=== PATIENT | male | born 1955 | race American Indian/Alaskan Native ===

== ENCOUNTER 2019-06-30 13:55 | Inpatient (IN) | payer MEDICARE ==
--- NOTE | 2019-06-30 14:22 | Event Note ---
ED Screening Note ED Screening Note: act team provider to his home usually mobile; able to go get his own food etc. difficulty ambulating a/o x 3 caregiver could not get him to come to door landlord did wellness check pt found weak no sob no cp pmh htn cardiac stent baseline speech imped. but worse today denies fall nok sister Georgette This initial assessment/diagnostic orders/clinical plan/treatment(s) is/are subject to change based on patients health status, clinical progression and re- assessment by fellow clinical providers in the ED. Further treatment and workup at subsequent clinical providers discretion. Patient/guardian urged not to elope from the ED as their condition may be serious if not clinically assessed and managed. Initial orders include: to main for full eval
[2019-06-30 15:01] LABS: Basophils % (Auto) 0.4 % (0.0-1.8); Eosinophils # (Auto) 0.1 K/mm3 (0.0-0.4); Eosinophils % (Auto) 1.9 % (0.0-4.3); Hematocrit 44.4 % (35.5-45.6); Hemoglobin 14.9 gm/dl (11.8-15.2); Lymphocytes # (Auto) 1.4 K/mm3 (1.2-5.4); Lymphocytes % (Auto) 21.6 % (13.4-35.0); Mean Corpuscular HGB Conc 34 % (32-34); Mean Corpuscular Volume 95 fl (84-94); Monocytes # (Auto) 0.5 K/mm3 (0.0-0.8); Monocytes % (Auto) 7.6 % (0.0-7.3); Platelet Count 220 K/mm3 (140-440); Red Blood Count 4.69 M/mm3 (3.65-5.03); Red Cell Distribution Width 12.9 % (13.2-15.2)
[2019-06-30 15:12] LABS: INR 0.96 (0.87-1.13)
[2019-06-30 15:26] LABS: Alanine Aminotransferase 10 units/L (7-56); Albumin 4.3 g/dL (3.9-5); BUN/Creatinine Ratio 15; Blood Urea Nitrogen 15 mg/dL (9-20); Calcium 9.9 mg/dL (8.4-10.2); Hemolysis Index 17
[2019-06-30] MEDS ORDERED: NACL 0.9% 1000 ML 1,000 ML IV ONE (15:31)
--- NOTE | 2019-06-30 15:31 | XRay Report ---
CHEST 1 VIEW INDICATION: altered mental status; sob. COMPARISON: None FINDINGS: Support devices: None. Heart: Within normal limits. Lungs/Pleura: No acute air space or interstitial disease. Additional findings: None. IMPRESSION: 1. No acute findings. Signer Name: Nestor Cooley MD Signed: 06/30/2019 3:27 PM Workstation Name: [id number]
--- NOTE | 2019-06-30 16:16 | Emergency Department Report ---
ED General Adult HPI - General Chief complaint: Neuro Symptoms/Deficit Stated complaint: (R) LEG PAIN Time Seen by Provider: 06/30/19 14:18 Source: patient Mode of arrival: Wheelchair Limitations: No Limitations - History of Present Illness Initial comments: 64-year-old -Thai male presents to ED with right leg discomfort, weakness, dizziness, unsteady gait for the past 2 days. Since Sunday, really also noticed that patient has had some intermittent slurred speech. Family states he usually has some slurred speech after taking his psychiatric medications. No fever, chills or night sweats. History of schizophrenia on invega shots. nih 0 at 1430. -: Gradual Location: face, mouth Radiation: non-radiation Severity scale (0 -10): 3 Consistency: now resolved - Related Data Home Medications Medication Instructions Recorded Confirmed Last Taken Paliperidone Palmitate [Invega 234 mg IM QMONTH 06/30/19 06/30/19 06/30/19 Sustenna] amLODIPine [Norvasc] 10 mg PO DAILY 06/30/19 06/30/19 06/30/19 diphenhydrAMINE [Benadryl CAP] 50 mg PO QHS PRN 06/30/19 06/30/19 06/30/19 Previous Rx's Medication Instructions Recorded Last Taken Type Aspirin EC [Halfprin EC] 81 mg PO QDAY #30 tablet. 07/10/19 Unknown Rx AtorvaSTATin [Lipitor] 40 mg PO QHS #30 tablet 07/10/19 Unknown Rx Allergies Allergy/AdvReac Type Severity Reaction Status Date / Time No Known Allergies Allergy Unverified 06/30/19 14:07 ED Review of Systems ROS: Stated complaint: (R) LEG PAIN Other details as noted in HPI Comment: All other systems reviewed and negative Genitourinary: denies: urgency, dysuria Skin: denies: rash, lesions Neurological: weakness ED Past Medical Hx - Past Medical History Previous Medical History?: Yes Hx Hypertension: Yes - Surgical History Hx Coronary Stent: Yes - Social History Smoking Status: Current Every Day Smoker Substance Use Type: None - Medications Home Medications: Home Medications Medication Instructions Recorded Confirmed Last Taken Type Paliperidone Palmitate [Invega 234 mg IM QMONTH 06/30/19 06/30/19 06/30/19 History Sustenna] amLODIPine [Norvasc] 10 mg PO DAILY 06/30/19 06/30/19 06/30/19 History diphenhydrAMINE [Benadryl CAP] 50 mg PO QHS PRN 06/30/19 06/30/19 06/30/19 Hist ory Aspirin EC [Halfprin EC] 81 mg PO QDAY #30 tablet. 07/10/19 Unknown Rx AtorvaSTATin [Lipitor] 40 mg PO QHS #30 tablet 07/10/19 Unknown Rx ED Physical Exam - General Limitations: No Limitations (nih 0 at 1430.) General appearance: alert, in no apparent distress - Head Head exam: Present: atraumatic, normocephalic - Eye Eye exam: Present: normal appearance, PERRL, EOMI Pupils: Present: normal accommodation - ENT ENT exam: Present: normal exam, normal orophraynx - Neck Neck exam: Present: normal inspection - Respiratory Respiratory exam: Present: normal lung sounds bilaterally - Cardiovascular Cardiovascular Exam: Present: regular rate, normal rhythm - GI/Abdominal GI/Abdominal exam: Present: soft, normal bowel sounds - Neurological Exam Neurological exam: Present: alert, oriented X3, CN II-XII intact, other (right upper ext weakness) ED Course Vital Signs 06/30/19 06/30/19 06/30/19 14:26 15:30 15:45 Temperature 98.1 F Pulse Rate 104 H 83 87 Respiratory 18 14 14 Rate Blood Pressure 151/97 141/90 141/90 O2 Sat by Pulse 95 96 95 Oximetry 06/30/19 06/30/19 06/30/19 16:00 18:31 18:51 Temperature Pulse Rate 80 103 H Respiratory 19 18 Rate Blood Pressure 134/87 141/83 141/83 O2 Sat by Pulse 96 98 94 Oximetry 06/30/19 06/30/19 06/30/19 19:00 19:11 19:21 Temperature Pulse Rate 85 94 H 97 H Respiratory 11 L 19 15 Rate Blood Pressure 121/75 121/75 121/75 O2 Sat by Pulse 94 96 95 Oximetry 06/30/19 06/30/19 06/30/19 19:30 19:41 19:51 Temperature Pulse Rate 87 94 H Respiratory 18 20 Rate Blood Pressure 106/70 106/70 106/70 O2 Sat by Pulse 93 98 Oximetry 06/30/19 06/30/19 06/30/19 20:03 20:11 20:21 Temperature Pulse Rate 91 H 85 Respiratory 22 16 Rate Blood Pressure 106/70 129/82 129/82 O2 Sat by Pulse 95 96 97 Oximetry ED Medical Decision Making - Lab Data Result diagrams: 07/08/19 05:37 07/08/19 05:37 Critical care attestation.: If time is entered above; I have spent that time in minutes in the direct care of this critically ill patient, excluding procedure time. ED Disposition Clinical Impression: TIA (transient ischemic attack) Disposition: OP ADMIT IP TO THIS HOSP Is pt being admited?: Yes Does the pt Need Aspirin: Yes Condition: Stable
--- NOTE | 2019-06-30 17:24 | Cat Scan Report ---
CT head/brain wo con INDICATION: slurred speech 48 hrs. TECHNIQUE: Routine CT head without contrast. All CT scans at this location are performed using CT dos e reduction for ALARA by means of automated exposure control. COMPARISON: None. FINDINGS: BRAIN / INTRACRANIAL CONTENTS: There is chronic encephalomalacia in the right anterior frontal lobe a nd right anterior temporal lobe, likely secondary to remote prior trauma. There is no definite acute cortical infarct. There is moderate deep cerebral white matter hypoattenuation in keeping with modera te chronic microvascular radiographic change with expected dilation of the lateral ventricles. There is no acute hemorrhage, hydrocephalus, or adverse mass effect. ORBITS: No significant abnormality of visualized orbits. SINUSES / MASTOIDS: No significant abnormality of visualized sinuses and mastoid air cells. ADDITIONAL FINDINGS: None. IMPRESSION: 1. No definite acute findings. 2. Chronic encephalomalacia in the right anterior temporal lobe and right inferior frontal lobe, like ly secondary to remote prior trauma. 3. Moderate deep cerebral white matter hypoattenuation with pattern consistent with chronic microvasc ular radiographic change. Signer Name: Spike Grey MD Signed: 06/30/2019 5:20 PM Workstation Name: [id number]
[2019-06-30] MEDS ORDERED: DULCOLAX PR PRN (19:37)
[2019-06-30] MEDS ORDERED: ZOFRAN IV PRN (19:37)
[2019-06-30] MEDS ORDERED: MILK OF MAGNESIA PO PRN ×2 (19:37→20:29)
[2019-06-30 20:36] LABS: Bilirubin,Urine NEG (Negative); Blood,Urine NEG (Negative); Color,Urine Yellow (Yellow); Protein,Urine <15 mg/dL mg/dL (Negative); Urobilinogen,Urine < 2.0 mg/dL (<2.0)
--- NOTE | 2019-06-30 20:37 | History and Physical Report ---
History of Present Illness Date of examination: 06/30/19 Date of admission: 06/30/2019 Chief complaint: Right leg discomfort, weakness, dizziness, unsteady gait History of present illness: 64-year-old -Malaysian male with history of schizophrenia, CAD s/p stent, HTN who presents to the [facility] ED with complaints of right leg discomfort, weakness, dizziness, unsteady gait for the past 2 days. Patient states that he started experiencing right leg discomfort/pain, weakness on Thursday 06/28. Later on that day he started experiencing dizziness and unsteady gait. Patient also states that he's been having intermittent slurred speech. His family states that he usually has some slurred speech after receiving monthly invega injection. Denies: Headache, visual disturbances, fever, cough, hemoptysis, chest pain, dyspnea, or recent sick contact Past History Past Medical History: CAD, hypertension (s/p stent), other (schizophrenia on monthly invega shots) Past Surgical History: Other (s/p stent) Social history: smoking (current everday smoker) Family history: no significant family history Medications and Allergies Allergies Allergy/AdvReac Type Severity Reaction Status Date / Time No Known Allergies Allergy Unverified 06/30/19 14:07 Home Medications Medication Instructions Recorded Confirmed Last Taken Type Paliperidone Palmitate [Invega 234 mg IM QMONTH 06/30/19 06/30/19 06/30/19 History Sustenna] amLODIPine [Norvasc] 10 mg PO DAILY 06/30/19 06/30/19 06/30/19 History diphenhydrAMINE [Benadryl CAP] 50 mg PO QHS PRN 06/30/19 06/30/19 06/30/19 History Active Meds: Active Medications Acetaminophen (Tylenol) 650 mg PO Q4H PRN PRN Reason: Pain, Mild (1-3) Amlodipine Besylate (Norvasc) 10 mg PO DAILY JAS Aspirin (Aspirin) 325 mg PO QDAY JAS Atorvastatin Calcium (Lipitor) 40 mg PO QHS JAS Bisacodyl (Dulcolax) 10 mg DE QDAY PRN PRN Reason: Constipation Docusate Sodium (Colace) 100 mg PO BID JAS Sodium Chloride (Nacl 0.9% 1000 Ml) 1,000 mls @ 125 mls/hr IV ONCE ONE Stop: 06/30/19 23:30 Last Admin: 06/30/19 15:56 Dose: 125 mls/hr Documented by: Magnesium Hydroxide (Milk Of Magnesia) 30 ml PO Q4H PRN PRN Reason: Constipation Magnesium Hydroxide (Milk Of Magnesia) 30 ml PO Q4H PRN PRN Reason: Constipation Nicotine (Habitrol) 14 mg TD QDAY JAS Ondansetron HCl (Zofran) 4 mg IV Q6H PRN PRN Reason: Nausea And Vomiting Sodium Chloride (Sodium Chloride Flush Syringe 10 Ml) 10 ml IV PRN PRN PRN Reason: LINE FLUSH Review of Systems All systems: negative Constitutional: no fatigue, no weakness Integumentary: other (right leg pain) Neurological: weakness (rt leg ), change in speech (slurred speech), gait dysfunction Exam - Physical Exam Narrative exam: Physical exam General appearance: Present: No acute distress, alert and oriented 3, older adult male - EENT Eyes: Present: PERRL, EOM intact ENT: hearing intact, normal dentition - Neck Neck: Present: supple, normal ROM - Respiratory Respiratory effort: Non-labored Respiratory: CTA bilaterally - Cardiovascular Heart rate: 87 (bpm) Rhythm: regular Heart Sounds: Present: S1 & S2. Absent: rub, click - Extremities Extremities: no ischemia, pulses intact, - Peripheral Assessment Peripheral Pulses: within normal limits - Abdominal General gastrointestinal: soft, non-tender, normal bowel sounds - Integumentary Integumentary: Present: warm, dry - Musculoskeletal Musculoskeletal: Able to move all extremities, right upper extremity weakness noted -Neurological Neurological: CN II-XII grossly intact - Psychiatric Psychiatric: cooperative - Constitutional Vitals: Temp Pulse Resp BP Pulse Ox 98.1 F 85 16 129/82 97 06/30/19 14:26 06/30/19 20:21 06/30/19 20:21 06/30/19 20:21 06/30/19 20:21 Results - Labs CBC & Chem 7: 06/30/19 14:45 06/30/19 14:45 Labs: Laboratory Last Values WBC 6.6 K/mm3 (4.5-11.0) 06/30/19 14:45 RBC 4.69 M/mm3 (3.65-5.03) 06/30/19 14:45 Hgb 14.9 gm/dl (11.8-15.2) 06/30/19 14:45 Hct 44.4 % (35.5-45.6) 06/30/19 14:45 MCV 95 fl (84-94) H 06/30/19 14:45 MCH 32 pg (28-32) 06/30/19 14:45 MCHC 34 % (32-34) 06/30/19 14:45 RDW 12.9 % (13.2-15.2) L 06/30/19 14:45 Plt Count 220 K/mm3 (140-440) 06/30/19 14:45 Lymph % (Auto) 21.6 % (13.4-35.0) 06/30/19 14:45 [place] % (Auto) 7.6 % (0.0-7.3) H 06/30/19 14:45 Eos % (Auto) 1.9 % (0.0-4.3) 06/30/19 14:45 Baso % (Auto) 0.4 % (0.0-1.8) 06/30/19 14:45 Lymph # 1.4 K/mm3 (1.2-5.4) 06/30/19 14:45 [place] # 0.5 K/mm3 (0.0-0.8) 06/30/19 14:45 Eos # 0.1 K/mm3 (0.0-0.4) 06/30/19 14:45 Baso # 0.0 K/mm3 (0.0-0.1) 06/30/19 14:45 Seg Neutrophils % 68.5 % (40.0-70.0) 06/30/19 14:45 Seg Neutrophils # 4.6 K/mm3 (1.8-7.7) 06/30/19 14:45 PT 12.5 Sec. (12.2-14.9) 06/30/19 14:45 INR 0.96 (0.87-1.13) 06/30/19 14:45 Sodium 138 mmol/L (137-145) 06/30/19 14:45 Potassium 4.3 mmol/L (3.6-5.0) 06/30/19 14:45 Chloride 97.5 mmol/L (98-107) L 06/30/19 14:45 Carbon Dioxide 25 mmol/L (22-30) 06/30/19 14:45 20 mmol/L 06/30/19 14:45 BUN 15 mg/dL (9-20) 06/30/19 14:45 1.0 mg/dL (0.8-1.5) 06/30/19 14:45 Estimated GFR > 60 ml/min 06/30/19 14:45 15 % 06/30/19 14:45 Glucose 90 mg/dL (75-100) 06/30/19 14:45 POC Glucose 81 (70-105) 06/30/19 14:41 Calcium 9.9 mg/dL (8.4-10.2) 06/30/19 14:45 Magnesium 2.10 mg/dL (1.7-2.3) 06/30/19 14:45 0.90 mg/dL (0.1-1.2) 06/30/19 14:45 AST 17 units/L (5-40) 06/30/19 14:45 ALT 10 units/L (7-56) 06/30/19 14:45 76 units/L (35-129) 06/30/19 14:45 177 units/L (55-170) H 06/30/19 14:45 < 0.010 ng/mL (0.00-0.029) 06/30/19 14:45 7.8 g/dL (6.3-8.2) 06/30/19 14:45 4.3 g/dL (3.9-5) 06/30/19 14:45 1.2 % 06/30/19 14:45 - Imaging and Cardiology Chest x-ray: report reviewed (Lungs/Pleura: No acute air space or interstitial disease. ), image reviewed Imaging and Cardiology: CT Head: FINDINGS: BRAIN / INTRACRANIAL CONTENTS: There is chronic encephalomalacia in the right anterior frontal lobe and right anterior temporal lobe, likely secondary to remote prior trauma. There is no definite acute cortical infarct. There is moderate deep cerebral white matter hypoattenuation in keeping with moderate chronic microvascular radiographic change with expected dilation of the lateral ventricles. There is no acute hemorrhage, hydrocephalus, or adverse mass effect. ORBITS: No significant abnormality of visualized orbits. SINUSES / MASTOIDS: No significant abnormality of visualized sinuses and mastoid air cells. ADDITIONAL FINDINGS: None. IMPRESSION: 1. No definite acute findings. 2. Chronic encephalomalacia in the right anterior temporal lobe and right inferior frontal lobe, likely secondary to remote prior trauma. 3. Moderate deep cerebral white matter hypoattenuation with pattern consistent with chronic microvascular radiographic change. Assessment and Plan Assessment and plan: 64-year-old -Malaysian male with history of schizophrenia, CAD s/p stent, HTN who presents to the [facility] ED with complaints of right leg discomfort, weakness, dizziness, unsteady gait for the past 2 days. Examination patient has slight right upper extremity weakness. TIA R/O Acute CVA -CT Head revealed: Chronic encephalomalacia in the right anterior temporal lobe and right inferior frontal lobe, likely secondary to remote prior trauma. Moderate deep cerebral white matter hypoattenuation with pattern consistent with chronic microvascular radiographic change. -Initiate stroke protocol -Neurochecks per stroke protocol -MRI/ MRA brain, bilateral Carotid Dopplers and Echo pending -No need for permissive htn given that event occured 2 days ago -Start ASA, and Statin -Lipid panel pending -Neurology consulted -PT/OT consult -?? slurred speech per family pt has breif period of slurred speech after receiving invega Hypertension -Continue to monitor BP -Resume home antihypertensive medication to optimize BP History of schizophrenia -receives monthly invega shots -Supportive care DVT PPX -Lovenox -SCD's Advance Directives: No VTE prophylaxis?: Chemical Plan of care discussed with patient/family: Yes
[2019-06-30] MEDS: COLACE PO SCH (21:59)
[2019-07-01 06:22] LABS: Chol/HDL Ratio 4.8 %
[2019-07-01] MEDS: NORVASC PO SCH (10:45)
[2019-07-01] MEDS: ASPIRIN PO SCH (10:45)
[2019-07-01] MEDS: HABITROL TD SCH (10:45)
[2019-07-01] MEDS: COLACE PO SCH ×2 (10:45→22:01)
[2019-07-01] MEDS: LOVENOX SUB-Q SCH (10:46)
--- NOTE | 2019-07-01 15:26 | Progress Note ---
Assessment and Plan Assessment and plan: Patient is a 64-year-old -Citizen Of [place] male with history of schizophrenia, CAD s/p stent, HTN who presents to the [facility] ED with complaints of right leg discomfort, weakness, dizziness, unsteady gait for the past 2 days. * CT head without contrast: IMPRESSION: 1. No definite acute findings. 2. Chronic encephalomalacia in the right anterior temporal lobe and right inferior frontal lobe, likely secondary to remote prior trauma. 3. Moderate deep cerebral white matter hypoattenuation with pattern consistent with chronic microvascular radiographic change. * TTE conclusions: Global LVSF is at the lower limit of normal, estimated EF 50- 55%, mild concentric LVH, mild MVP, mild MR, trace TR, no PFO TIA R/O Acute CVA -CT Head revealed: Chronic encephalomalacia in the right anterior temporal lobe and right inferior frontal lobe, likely secondary to remote prior trauma. Modera te deep cerebral white matter hypoattenuation with pattern consistent with chronic microvascular radiographic change. -Initiate stroke protocol -Neurochecks per stroke protocol -MRI/ MRA brain, bilateral Carotid Dopplers and -No need for permissive htn given that event occurred 2 days ago -Start ASA, and Statin -Lipid panel pending -Neurology consulted -PT/OT consult -?? slurred speech per family pt has breif period of slurred speech after receiving invega Hypertension -Continue to monitor BP -Resume home antihypertensive medication to optimize BP History of schizophrenia -receives monthly invega shots -Supportive care DVT PPX -Lovenox -SCD's History Interval history: Patient was seen and examined. Follow-up on current diagnosis of TIA. No overnight events reported to me. Patient denies any chest pain, shortness breath, nausea/vomiting or severe headaches. Imaging, nursing note, chart, labs and old chart reviewed. Discussed with patient. Hospitalist Physical - Physical exam Narrative exam: Gen: WDWN, NAD, Awake, Alert, Orientated HEENT: NCAT, EOMI, PERRL, OP Clear Neck: supple, no adenopathy, no thyromegaly, no JVD CVS/Heart: RRR, normal S1S2, pulses present bilaterally Chest/Lungs: CTA B, Symmetrical chest expansion, good air entry bilaterally GI/Abdomen: soft, NTND, good bowel sounds, no guarding or rebound /Bladder: no suprapubic tenderness, no CVA or paraspinal tenderness Extermity/Skin: no c/c/e, no obvious rash MSK: FROM x 4 Neuro: CN 2-12 grossly intact, no new focal deficits Psych: calm - Constitutional Vitals: Temp Pulse Resp BP Pulse Ox 97.8 F 93 H 18 139/78 97 07/01/19 11:16 07/01/19 11:16 07/01/19 11:16 07/01/19 11:16 07/01/19 11:16 Results - Labs CBC & Chem 7: 06/30/19 14:45 06/30/19 14:45 Labs: Laboratory Last Values WBC 6.6 K/mm3 (4.5-11.0) 06/30/19 14:45 RBC 4.69 M/mm3 (3.65-5.03) 06/30/19 14:45 Hgb 14.9 gm/dl (11.8-15.2) 06/30/19 14:45 Hct 44.4 % (35.5-45.6) 06/30/19 14:45 MCV 95 fl (84-94) H 06/30/19 14:45 MCH 32 pg (28-32) 06/30/19 14:45 MCHC 34 % (32-34) 06/30/19 14:45 RDW 12.9 % (13.2-15.2) L 06/30/19 14:45 Plt Count 220 K/mm3 (140-440) 06/30/19 14:45 Lymph % (Auto) 21.6 % (13.4-35.0) 06/30/19 14:45 [place] % (Auto) 7.6 % (0.0-7.3) H 06/30/19 14:45 Eos % (Auto) 1.9 % (0.0-4.3) 06/30/19 14:45 Baso % (Auto) 0.4 % (0.0-1.8) 06/30/19 14:45 Lymph # 1.4 K/mm3 (1.2-5.4) 06/30/19 14:45 [place] # 0.5 K/mm3 (0.0-0.8) 06/30/19 14:45 Eos # 0.1 K/mm3 (0.0-0.4) 06/30/19 14:45 Baso # 0.0 K/mm3 (0.0-0.1) 06/30/19 14:45 Seg Neutrophils % 68.5 % (40.0-70.0) 06/30/19 14:45 Seg Neutrophils # 4.6 K/mm3 (1.8-7.7) 06/30/19 14:45 PT 12.5 Sec. (12.2-14.9) 06/30/19 14:45 INR 0.96 (0.87-1.13) 06/30/19 14:45 Sodium 138 mmol/L (137-145) 06/30/19 14:45 Potassium 4.3 mmol/L (3.6-5.0) 06/30/19 14:45 Chloride 97.5 mmol/L (98-107) L 06/30/19 14:45 Carbon Dioxide 25 mmol/L (22-30) 06/30/19 14:45 20 mmol/L 06/30/19 14:45 BUN 15 mg/dL (9-20) 06/30/19 14:45 1.0 mg/dL (0.8-1.5) 06/30/19 14:45 Estimated GFR > 60 ml/min 06/30/19 14:45 15 % 06/30/19 14:45 Glucose 90 mg/dL (75-100) 06/30/19 14:45 POC Glucose 81 (70-105) 06/30/19 14:41 Calcium 9.9 mg/dL (8.4-10.2) 06/30/19 14:45 Magnesium 2.10 mg/dL (1.7-2.3) 06/30/19 14:45 0.90 mg/dL (0.1-1.2) 06/30/19 14:45 AST 17 units/L (5-40) 06/30/19 14:45 ALT 10 units/L (7-56) 06/30/19 14:45 76 units/L (35-129) 06/30/19 14:45 177 units/L (55-170) H 06/30/19 14:45 < 0.010 ng/mL (0.00-0.029) 06/30/19 22:41 7.8 g/dL (6.3-8.2) 06/30/19 14:45 4.3 g/dL (3.9-5) 06/30/19 14:45 1.2 % 06/30/19 14:45 Triglycerides 105 mg/dL (2-149) 07/01/19 04:54 Cholesterol 221 mg/dL (50-199) H 07/01/19 04:54 173 mg/dL (50-130) H 07/01/19 04:54 46 mg/dL (40-59) 07/01/19 04:54 4.80 % 07/01/19 04:54 Yellow (Yellow) 06/30/19 20:07 Clear (Clear) 06/30/19 20:07 5.0 (5.0-7.0) 06/30/19 20:07 Ur Specific [place] 1.018 (1.003-1.030) 06/30/19 20:07 <15 mg/dl mg/dL (Negative) 06/30/19 20:07 Neg mg/dL (Negative) 06/30/19 20:07 Tr mg/dL (Negative) 06/30/19 20:07 Neg (Negative) 06/30/19 20:07 Neg (Negative) 06/30/19 20:07 Neg (Negative) 06/30/19 20:07 < 2.0 mg/dL (<2.0) 06/30/19 20:07 Ur Leukocyte Esterase Neg (Negative) 06/30/19 20:07 1.0 /HPF (0.0-6.0) 06/30/19 20:07 1.0 /HPF (0.0-6.0) 06/30/19 20:07 Active Medications - Current Medications Current Medications: Generic Name Dose Route Start Last Admin Trade Name Freq PRN Reason Stop Dose Admin Acetaminophen 650 mg 06/30/19 19:37 Tylenol PO Q4H PRN Pain, Mild (1-3) Amlodipine Besylate 10 mg 07/01/19 10:00 07/01/19 10:45 Norvasc PO 10 mg DAILY JAS Administration Aspirin 325 mg 07/01/19 10:00 07/01/19 10:45 Aspirin PO 325 mg QDAY JAS Administration Atorvastatin Calcium 40 mg 06/30/19 22:00 06/30/19 21:59 Lipitor PO 40 mg QHS JAS Administration Bisacodyl 10 mg 06/30/19 19:37 Dulcolax [place] QDAY PRN Constipation Docusate Sodium 100 mg 06/30/19 22:00 07/01/19 10:45 Colace PO 100 mg BID JAS Administration Enoxaparin Sodium 40 mg 07/01/19 10:00 07/01/19 10:46 Lovenox SUB-Q 40 mg DAILY JAS Administration Magnesium Hydroxide 30 ml 06/30/19 20:29 Milk Of Magnesia PO Q4H PRN Constipation Nicotine 14 mg 07/01/19 10:00 07/01/19 10:45 Habitrol TD 14 mg QDAY [facility] Administration Ondansetron HCl 4 mg 06/30/19 19:37 Zofran IV Q6H PRN Nausea And Vomiting Sodium Chloride 10 ml 06/30/19 19:37 Sodium Chloride Flush Syringe 10 Ml IV PRN PRN LINE FLUSH
--- NOTE | 2019-07-01 16:52 | Consultation ---
History of Present Illness Consult date: 07/01/19 Reason for Consult: Possible stroke Chief complaint: Rt. leg weakness, dizziness, unsteady gait History of present illness: Patient is a 64 y/o man w/ a h/o HTN, CAD, schizophrenia. Patient had onset of symptoms of Rt. leg weakness, dizziness, unsteady gait and slurred speech 2 days ago. Patient presented to ER yesterday. He states that weakness initially started in Rt. LE, then he later developed imbalanced gait. he has also had intermittent slurred speech. Patient does not have any recollection of having a stroke in the past. He states that he has had one seizure in his life, which occurred in 1995, and has not had any seizures since then. Past History Past Medical History: CAD, hypertension (s/p stent), other (schizophrenia on monthly invega shots) Past Surgical History: Other (s/p stent) Social history: smoking (current everday smoker) Family history: no significant family history Medications and Allergies Allergies Allergy/AdvReac Type Severity Reaction Status Date / Time No Known Allergies Allergy Unverified 06/30/19 14:07 Home Medications Medication Instructions Recorded Confirmed Last Taken Type Paliperidone Palmitate [Invega 234 mg IM QMONTH 06/30/19 06/30/19 06/30/19 History Sustenna] amLODIPine [Norvasc] 10 mg PO DAILY 06/30/19 06/30/19 06/30/19 History diphenhydrAMINE [Benadryl CAP] 50 mg PO QHS PRN 06/30/19 06/30/19 06/30/19 History Active Meds: Active Medications Acetaminophen (Tylenol) 650 mg PO Q4H PRN PRN Reason: Pain, Mild (1-3) Amlodipine Besylate (Norvasc) 10 mg PO DAILY [facility] Last Admin: 07/01/19 10:45 Dose: 10 mg Documented by: Aspirin (Aspirin) 325 mg PO QDAY [facility] Last Admin: 07/01/19 10:45 Dose: 325 mg Documented by: Atorvastatin Calcium (Lipitor) 40 mg PO QHS [facility] Last Admin: 06/30/19 21:59 Dose: 40 mg Documented by: Bisacodyl (Dulcolax) 10 mg CO QDAY PRN PRN Reason: Constipation Docusate Sodium (Colace) 100 mg PO BID [facility] Last Admin: 07/01/19 10:45 Dose: 100 mg Documented by: Enoxaparin Sodium (Lovenox) 40 mg SUB-Q DAILY [facility] Last Admin: 07/01/19 10:46 Dose: 40 mg Documented by: Magnesium Hydroxide (Milk Of Magnesia) 30 ml PO Q4H PRN PRN Reason: Constipation Nicotine (Habitrol) 14 mg TD QDAY [facility] Last Admin: 07/01/19 10:45 Dose: 14 mg Documented by: Ondansetron HCl (Zofran) 4 mg IV Q6H PRN PRN Reason: Nausea And Vomiting Sodium Chloride (Sodium Chloride Flush Syringe 10 Ml) 10 ml IV PRN PRN PRN Reason: LINE FLUSH Review of Systems All systems: negative Neurological: weakness, lack of coordination, change in speech, balance difficulties Physical Examination - Vital Signs Vital Signs: Vital Signs Temp Pulse Resp BP Pulse Ox 98.1 F 104 H 18 151/97 95 06/30/19 14:26 06/30/19 14:26 06/30/19 14:26 06/30/19 14:26 06/30/19 14:26 - Constitutional General appearance: comfortable - EENT EENT: Present: ATNC, PERRL, mucous membranes moist, hearing intact, vision intact - Respiratory Respiratory: Present: lungs clear, normal breath sounds - Cardiovascular Cardiovascular: Present: regular rate, normal S1, normal S2 Extremities: Present: no peripheral edema bilatateraly, no clubbing, cyanosis - Gastrointestinal Gastrointestinal: Present: normoactive bowel sounds, soft, non-tender - Integumentary Integumentary: Present: normal - Neurologic Cranial nerve examination: PERRL, EOMI, VFF, V1/V2/V3 grossly intact, face sy mmetric, tongue midline Speech examination: other (dysarthria noted) Sensorimotor examination: pronator drift Motor examination - right side: 3/5: biceps, triceps, wrist flexion, wrist extension, surgical instrument maker, 4/5: hip flexors, knee extensors, dorsiflexion, toe extension (EHL), plantarflexion Motor examination - left side: 5/5: biceps, triceps, wrist flexion, wrist extension, surgical instrument maker, hip flexors, knee extensors, dorsiflexion, toe extension (EHL), plantarflexion Detailed sensory examination: light touch (decreased on Rt.) Reflexes: 2+: ankle, bicep, knee, tricep - Psychiatric Psychiatric: Present: mood/affect appropriate - Level of Consciousness 1a. Level of Consciousness: alert/keenly responsive - LOC Questions 1b. LOC Questions: answers both correctly - LOC Command 1c. LOC Commands: performs tasks correctly - Best Gaze 2. Best Gaze: normal - Visual 3. Visual: no visual loss - Facial Palsy 4. Facial Palsy: normal symmetrical movement - Motor Arm 5a. Motor Arm Left: no drift 5b. Motor Arm Right: drift - Motor Leg 6a. Motor Leg Left: no drift 6b. Motor Leg Right: drift - Limb Ataxia 7. Limb Ataxia: absent - Sensory 8. Sensory: mild/moderate sensory loss - Best Language 9. Best Language: no aphasia - Dysarthria 10. Dysarthria: mild/moderate dysarthria - Extinction and Inattention 11. Extinction/Inattention: no abnormality - Scoring Total Score: 4 Stroke Severity: Minor Stroke Results - Laboratory Findings CBC and BMP: 06/30/19 14:45 06/30/19 14:45 Abnormal Lab Findings: Abnormal Labs 06/30/19 06/30/19 06/30/19 14:45 14:45 14:45 MCV 95 H RDW 12.9 L [place] % (Auto) 7.6 H Chloride 97.5 L Total Creatine Kinase 177 H Cholesterol LDL Cholesterol Direct 07/01/19 04:54 MCV RDW [place] % (Auto) Chloride Total Creatine Kinase Cholesterol 221 H LDL Cholesterol Direct 173 H Assessment and Plan Patient is a 64 y/o man w/ a h/o HTN, CAD, schizophrenia, who p/w Rt. leg weakness, dizziness, unsteady, slurred speech, 3 days ago. According to the patient's clinical findings, he has had an acute ischemic stroke, as is seen on MRI. Plan: 1. Stroke: - MRI reveals left ponto-medullary stroke. Also notable for encephalomalacia in Rt. frontal region, which may be old stroke. Patient denies any h/o head trauma. - Check CTA head/neck - Echo: EF 50-55%, LA normal size, bubble study negative. -Cont. ASA - Cont. statin, with LDL goal <70. Current LDL 173. - Telemetry monitoring while in house. - PT/OT/ST. - DVT Ppx: recommend lovenox 2. HTN: - Recommend target normal BP as it has been >48 hours since symptom onset. Will continue to follow patient. Mik Young MD Neurology
--- NOTE | 2019-07-01 17:37 | Magnetic Resonance Report ---
MR brain wo con INDICATION / CLINICAL INFORMATION: 64 years Male; stroke. TECHNIQUE: Multiplanar, multisequence MR images of the brain were obtained. Motion artifact COMPARISON: None available. FINDINGS: BRAIN / INTRACRANIAL CONTENTS: Small focus of acute/subacute ischemia seen in the melo leftward of mi dline at the level of the superior cerebellar peduncle. Mild to moderate cerebral and cerebellar atrophy. Encephalomalacia seen in the right frontal region. Old, small corpus striatal infarct seen anteriorly on the left. There are moderate to extensive areas of increased signal intensity on FLAIR imaging in the white mat ter of the cerebral hemispheres, as well as the gangliocapsular regions. These are nonspecific findin gs and may be related to microangiopathy (hypertension, diabetes, atherosclerosis), given the patient 's age. Otherwise, no acute ischemia, acute hemorrhage, or hydrocephalus. CRANIOCERVICAL JUNCTION: No significant abnormality. VASCULAR FLOW-VOIDS: No significant abnormality. ORBITS: No significant abnormality of visualized orbits. SINUSES / MASTOIDS: Mild to moderate mucosal thickening seen in the ethmoids. ADDITIONAL FINDINGS: None. IMPRESSION: 1. Small focus of ischemia seen in the melo leftward of midline, as described above. Signer Name: Donaldo Billings MD, III Signed: 07/01/2019 5:33 PM Workstation Name: [id number]
--- NOTE | 2019-07-02 11:24 | Magnetic Resonance Report ---
MRA head without contrast INDICATION: Recent stroke. TECHNIQUE: 3-D [id number] MRA head performed. COMPARISON: None available. FINDINGS: Exam is mildly limited from motion artifact. No discrete large vessel occlusion or flow-limiting sten osis is identified. There is probable mild stenosis of the bilateral supraclinoid ICAs. No intracrani al aneurysms are identified. There are no significant anatomical variations. IMPRESSION: 1. Mildly limited exam secondary to motion artifact. No appreciable flow limiting stenosis or large v essel occlusion. 2. Probable mild stenosis in the bilateral supraclinoid internal carotid arteries. Signer Name: Spike Grey MD Signed: 07/02/2019 11:20 AM Workstation Name: [id number]
[2019-07-02] MEDS: ASPIRIN PO SCH (13:32)
[2019-07-02] MEDS: LOVENOX SUB-Q SCH (13:32)
[2019-07-02] MEDS: COLACE PO SCH ×2 (13:32→21:52)
[2019-07-02] MEDS: HABITROL TD SCH (13:32)
[2019-07-02] MEDS: NORVASC PO SCH (13:38)
--- NOTE | 2019-07-02 14:53 | Cat Scan Report ---
CTA HEAD AND NECK WITH CONTRAST HISTORY: Recent stroke. Slurred speech. COMPARISON: Head CT on 06/30/2019. TECHNIQUE: CTA head and neck with IV contrast. Patient received 100 mL of IV Omnipaque 350. All CT sc ans at this location are performed using CT dose reduction for ALARA by means of automated exposure c ontrol. 3-D/MIP reformats postprocessed. Percentage stenosis is determined by direct quantitative me asurements of diseased internal carotid artery diameter compared with normal distal internal carotid artery reference segments or by criteria similar to NASCET where applicable. FINDINGS: CTA HEAD: Intracranial vertebral arteries: Mild atherosclerosis in the intracranial right vertebral artery with out flow-limiting stenosis. Basilar artery: No significant abnormality. Posterior cerebral arteries: No significant abnormality. Intracranial internal carotid arteries: Mild atherosclerotic calcification without significant stenos is. Anterior cerebral arteries: No significant abnormality. Middle cerebral arteries: No significant abnormality. Dural venous sinuses:Not optimally opacified. No significant abnormality. CTA NECK: Aortic arch: Mild atherosclerotic calcification without significant stenosis or aneurysm. Cervical vertebral arteries: No significant abnormality. Common carotid arteries: No significant abnormality. Cervical internal carotid arteries: There is mild atherosclerotic plaque in the left carotid bulb wit hout significant stenosis. There is no significant atherosclerosis in the right carotid bulb. Additional findings: There is mild emphysema in the included lung apices. IMPRESSION: 1. No flow-limiting stenosis or large vessel occlusion of the cervical or intracranial arteries. 2. Mild atherosclerosis in the bilateral intracranial internal carotid arteries, right intracranial v ertebral artery, and left carotid bulb without significant stenosis. Signer Name: Spike Grey MD Signed: 07/02/2019 2:49 PM Workstation Name: [email or web address]
--- NOTE | 2019-07-02 15:51 | Progress Note ---
Assessment and Plan Assessment and plan: Patient is a 64-year-old -[place] male with history of schizophrenia, CAD s/p stent, HTN who presents to the [facility] ED with complaints of right leg discomfort, weakness, dizziness, unsteady gait for the past 2 days. * CT head without contrast: IMPRESSION: 1. No definite acute findings. 2. Chronic encephalomalacia in the right anterior temporal lobe and right inferior frontal lobe, likely secondary to remote prior trauma. 3. Moderate deep cerebral white matter hypoattenuation with pattern consistent with chronic microvascular radiographic change. * TTE conclusions: Global LVSF is at the lower limit of normal, estimated EF 50- 55%, mild concentric LVH, mild MVP, mild MR, trace TR, no PFO * Brain MRI without contrast IMPRESSION: 1. Small focus of ischemia seen in the melo leftward of midline, as described above. * Brain MRA without contrast IMPRESSION: 1. Mildly limited exam secondary to mo tion artifact. No appreciable flow limiting stenosis or large vessel occlusion. 2. Probable mild stenosis in the bilateral supraclinoid internal carotid arteries. * pCXR IMPRESSION: 1. No acute findings. * CTA head and neck IMPRESSION: 1. No flow-limiting stenosis or large vessel occlusion of the cervical or intracranial arteries. 2. Mild atherosclerosis in the bilateral intracranial internal carotid arteries, right intracranial vertebral artery, and left carotid bulb without significant stenosis. Acute CVA ruled in, brain stem pontine ischemic stroke -treat with ASA, and Statin -Lipid panel pending -Neurology consulted, input noted -PT/OT consulted, input noted New onset Dyslipidemia -treat with statin Hypertension -Continue to monitor BP -stop bp due to borderline hypotension History of schizophrenia -receives monthly invega shots -Supportive care DVT PPX -Lovenox -SCD's Disposition: continue inpatient care, inpatient REHAB pending History Interval history: Patient was seen and examined. Follow-up on current diagnosis of TIA. No overnight events reported to me. Patient denies any chest pain, shortness pietro th, nausea/vomiting or severe headaches. Imaging, nursing note, chart, labs and old chart reviewed. Discussed with patient. Hospitalist Physical - Physical exam Narrative exam: Gen: WDWN, NAD, Awake, Alert, Orientated HEENT: NCAT, EOMI, PERRL, OP Clear Neck: supple, no adenopathy, no thyromegaly, no JVD CVS/Heart: RRR, normal S1S2, pulses present bilaterally Chest/Lungs: CTA B, Symmetrical chest expansion, good air entry bilaterally GI/Abdomen: soft, NTND, good bowel sounds, no guarding or rebound /Bladder: no suprapubic tenderness, no CVA or paraspinal tenderness Extermity/Skin: no c/c/e, no obvious rash MSK: FROM x 4 Neuro: CN 2-12 grossly intact, no new focal deficits Psych: calm - Constitutional Vitals: Temp Pulse Resp BP Pulse Ox 98.6 F 89 18 106/73 100 07/02/19 08:02 07/02/19 13:38 07/02/19 09:39 07/02/19 13:38 07/02/19 08:02 Results - Labs CBC & Chem 7: 06/30/19 14:45 06/30/19 14:45 Labs: Laboratory Last Values WBC 6.6 K/mm3 (4.5-11.0) 06/30/19 14:45 RBC 4.69 M/mm3 (3.65-5.03) 06/30/19 14:45 Hgb 14.9 gm/dl (11.8-15.2) 06/30/19 14:45 Hct 44.4 % (35.5-45.6) 06/30/19 14:45 MCV 95 fl (84-94) H 06/30/19 14:45 MCH 32 pg (28-32) 06/30/19 14:45 MCHC 34 % (32-34) 06/30/19 14:45 RDW 12.9 % (13.2-15.2) L 06/30/19 14:45 Plt Count 220 K/mm3 (140-440) 06/30/19 14:45 Lymph % (Auto) 21.6 % (13.4-35.0) 06/30/19 14:45 [place] % (Auto) 7.6 % (0.0-7.3) H 06/30/19 14:45 Eos % (Auto) 1.9 % (0.0-4.3) 06/30/19 14:45 Baso % (Auto) 0.4 % (0.0-1.8) 06/30/19 14:45 Lymph # 1.4 K/mm3 (1.2-5.4) 06/30/19 14:45 [place] # 0.5 K/mm3 (0.0-0.8) 06/30/19 14:45 Eos # 0.1 K/mm3 (0.0-0.4) 06/30/19 14:45 Baso # 0.0 K/mm3 (0.0-0.1) 06/30/19 14:45 Seg Neutrophils % 68.5 % (40.0-70.0) 06/30/19 14:45 Seg Neutrophils # 4.6 K/mm3 (1.8-7.7) 06/30/19 14:45 PT 12.5 Sec. (12.2-14.9) 06/30/19 14:45 INR 0.96 (0.87-1.13) 06/30/19 14:45 Sodium 138 mmol/L (137-145) 06/30/19 14:45 Potassium 4.3 mmol/L (3.6-5.0) 06/30/19 14:45 Chloride 97.5 mmol/L (98-107) L 06/30/19 14:45 Carbon Dioxide 25 mmol/L (22-30) 06/30/19 14:45 20 mmol/L 06/30/19 14:45 BUN 15 mg/dL (9-20) 06/30/19 14:45 1.0 mg/dL (0.8-1.5) 06/30/19 14:45 Estimated GFR > 60 ml/min 06/30/19 14:45 15 % 06/30/19 14:45 Glucose 90 mg/dL (75-100) 06/30/19 14:45 POC Glucose 81 (70-105) 06/30/19 14:41 Calcium 9.9 mg/dL (8.4-10.2) 06/30/19 14:45 Magnesium 2.10 mg/dL (1.7-2.3) 06/30/19 14:45 0.90 mg/dL (0.1-1.2) 06/30/19 14:45 AST 17 units/L (5-40) 06/30/19 14:45 ALT 10 units/L (7-56) 06/30/19 14:45 76 units/L (35-129) 06/30/19 14:45 177 units/L (55-170) H 06/30/19 14:45 < 0.010 ng/mL (0.00-0.029) 07/01/19 15:17 7.8 g/dL (6.3-8.2) 06/30/19 14:45 4.3 g/dL (3.9-5) 06/30/19 14:45 1.2 % 06/30/19 14:45 Triglycerides 105 mg/dL (2-149) 07/01/19 04:54 Cholesterol 221 mg/dL (50-199) H 07/01/19 04:54 173 mg/dL (50-130) H 07/01/19 04:54 46 mg/dL (40-59) 07/01/19 04:54 4.80 % 07/01/19 04:54 Yellow (Yellow) 06/30/19 20:07 Clear (Clear) 06/30/19 20:07 5.0 (5.0-7.0) 06/30/19 20:07 Ur Specific [place] 1.018 (1.003-1.030) 06/30/19 20:07 <15 mg/dl mg/dL (Negative) 06/30/19 20:07 Neg mg/dL (Negative) 06/30/19 20:07 Tr mg/dL (Negative) 06/30/19 20:07 Neg (Negative) 06/30/19 20:07 Neg (Negative) 06/30/19 20:07 Neg (Negative) 06/30/19 20:07 < 2.0 mg/dL (<2.0) 06/30/19 20:07 Ur Leukocyte Esterase Neg (Negative) 06/30/19 20:07 1.0 /HPF (0.0-6.0) 06/30/19 20:07 1.0 /HPF (0.0-6.0) 06/30/19 20:07 Active Medications - Current Medications Current Medications: Generic Name Dose Route Start Last Admin Trade Name Freq PRN Reason Stop Dose Admin Acetaminophen 650 mg 06/30/19 19:37 Tylenol PO Q4H PRN Pain, Mild (1-3) Amlodipine Besylate 10 mg 07/01/19 10:00 07/02/19 13:38 Norvasc PO Not Given DAILY [facility] Aspirin 325 mg 07/01/19 10:00 07/02/19 13:32 Aspirin PO 325 mg QDAY [facility] Administration Atorvastatin Calcium 40 mg 06/30/19 22:00 07/01/19 22:01 Lipitor PO 40 mg QHS [facility] Administration Bisacodyl 10 mg 06/30/19 19:37 Dulcolax [place] QDAY PRN Constipation Docusate Sodium 100 mg 06/30/19 22:00 07/02/19 13:32 Colace PO 100 mg BID [facility] Administration Enoxaparin Sodium 40 mg 07/01/19 10:00 07/02/19 13:32 Lovenox SUB-Q 40 mg DAILY [facility] Administration Magnesium Hydroxide 30 ml 06/30/19 20:29 Milk Of Magnesia PO Q4H PRN Constipation Nicotine 14 mg 07/01/19 10:00 07/02/19 13:32 Habitrol TD 14 mg QDAY [facility] Administration Ondansetron HCl 4 mg 06/30/19 19:37 Zofran IV Q6H PRN Nausea And Vomiting Sodium Chloride 10 ml 06/30/19 19:37 Sodium Chloride Flush Syringe 10 Ml IV PRN PRN LINE FLUSH
--- NOTE | 2019-07-02 19:35 | Progress Note ---
Assessment and Plan Patient is a 64 y/o man w/ a h/o HTN, CAD, schizophrenia, who p/w Rt. leg weakness, dizziness, unsteady, slurred speech, 3 days ago. According to the patient's clinical findings, he has had an acute ischemic stroke, as is seen on MRI. Plan: 1. Stroke: - MRI reveals left pontine stroke. Also notable for encephalomalacia in Rt. frontal region, which may be old stroke. Patient denies any h/o head trauma. - CTA head/neck did not reveal any significant stenosis - Echo: EF 50-55%, LA normal size, bubble study negative. -Cont. ASA - Cont. statin, with LDL goal <70. Current LDL 173. - Telemetry monitoring while in house. - PT/OT/ST. - DVT Ppx: recommend lovenox - As patient has area of encephalomalacia, this may have been a previous stroke. Current stroke appears to be cyrptogenic, as no significant stenosis noted on vessel imaging. - Recommend heart monitoring as outpatient with either 30-day MCOT or ILR. -Recommend outpatient follow up with cardiology for heart monitor. - Recommend outpatient follow up with neurology. 2. HTN: - Recommend target normal BP as it has been >48 hours since symptom onset. -Will sign off as investigations complete, and treatment plan in place. Please call with any questions. Mik Young MD Neurology Subjective Date of service: 07/02/19 Principal diagnosis: Stroke Interval history: No acute events overnight. Objective - Vital Sign Vital Signs - 12hr 07/02/19 07/02/19 07/02/19 08:02 09:39 10:00 Temperature 98.6 F Pulse Rate 78 70 Pulse Rate [ 70 Apical] Pulse Rate [ 72 Radial] Respiratory 18 18 Rate Blood Pressure 140/66 O2 Sat by Pulse 100 98 Oximetry 07/02/19 07/02/19 07/02/19 13:29 13:31 13:38 Temperature Pulse Rate 89 Pulse Rate [ Apical] Pulse Rate [ Radial] Respiratory 18 18 Rate Blood Pressure 115/72 106/73 106/73 O2 Sat by Pulse Oximetry 07/02/19 16:13 Temperature 98.1 F Pulse Rate 94 H Pulse Rate [ Apical] Pulse Rate [ Radial] Respiratory 18 Rate Blood Pressure 119/83 O2 Sat by Pulse 95 Oximetry - General Apperance Constitutional: comfortable - EENT EENT: ATNC, PERRL, mucous membranes moist, hearing intact, vision intact - Respiratory Respiratory: lungs clear, normal breath sounds - Cardiovascular Cardiovascular: regular rate, normal S1, normal S2 Extremities: no peripheral edema bilat, no clubbing, cyanosis - Gastrointestinal Gastrointestinal: normoactive bowel sounds, soft, non-tender - Integumentary Integumentary: normal - Neurologic Cranial nerve examination: PERRL, EOMI, VFF, V1/V2/V3 grossly intact, face symmetric, tongue midline Speech examination: other (dysarthria noted) Motor examination - right side: 4/5: biceps, triceps, wrist flexion, wrist extension, wool hat hydraulicker, hip flexors, knee extensors, dorsiflexion, toe extension (EHL), plantarflexion Motor examination - left side: 5/5: biceps, triceps, wrist flexion, wrist extension, wool hat hydraulicker, hip flexors, knee extensors, dorsiflexion, toe extension (EHL), plantarflexion Detailed sensory examination: light touch (decreased on right) Reflexes: 2+: ankle, bicep, knee, tricep - Musculoskeletal Musculoskeletal: no fluid collection, no pain - Psychiatric Psychiatric: mood/affect appropriate - Laboratory Findings CBC and BMP: 06/30/19 14:45 06/30/19 14:45 Abnormal Lab Findings: Abnormal Labs 06/30/19 06/30/19 06/30/19 14:45 14:45 14:45 MCV 95 H RDW 12.9 L [place] % (Auto) 7.6 H Chloride 97.5 L Total Creatine Kinase 177 H Cholesterol LDL Cholesterol Direct 07/01/19 04:54 MCV RDW [place] % (Auto) Chloride Total Creatine Kinase Cholesterol 221 H LDL Cholesterol Direct 173 H
[2019-07-03] MEDS: ASPIRIN PO SCH (09:39)
[2019-07-03] MEDS: COLACE PO SCH ×2 (09:40→22:15)
[2019-07-03] MEDS: HABITROL TD SCH (09:40)
[2019-07-03] MEDS: LOVENOX SUB-Q SCH (09:40)
[2019-07-03] MEDS ORDERED: BENADRYL PO PRN (10:52)
[2019-07-03] MEDS ORDERED: PALIPERIDONE PALMITATE 234 MG IM SCH (11:00)
--- NOTE | 2019-07-03 14:26 | Progress Note ---
Assessment and Plan Assessment and plan: Patient is a 64-year-old -[place] male with history of schizophrenia, CAD s/p stent, HTN who presents to the [facility] ED with complaints of right leg discomfort, weakness, dizziness, unsteady gait for the past 2 days. * CT head without contrast: IMPRESSION: 1. No definite acute findings. 2. Chronic encephalomalacia in the right anterior temporal lobe and right inferior frontal lobe, likely secondary to remote prior trauma. 3. Moderate deep cerebral white matter hypoattenuation with pattern consistent with chronic microvascular radiographic change. * TTE conclusions: Global LVSF is at the lower limit of normal, estimated EF 50- 55%, mild concentric LVH, mild MVP, mild MR, trace TR, no PFO * Brain MRI without contrast IMPRESSION: 1. Small focus of ischemia seen in the melo leftward of midline, as described above. * Brain MRA without contrast IMPRESSION: 1. Mildly limited exam secondary to mo tion artifact. No appreciable flow limiting stenosis or large vessel occlusion. 2. Probable mild stenosis in the bilateral supraclinoid internal carotid arteries. * pCXR IMPRESSION: 1. No acute findings. * CTA head and neck IMPRESSION: 1. No flow-limiting stenosis or large vessel occlusion of the cervical or intracranial arteries. 2. Mild atherosclerosis in the bilateral intracranial internal carotid arteries, right intracranial vertebral artery, and left carotid bulb without significant stenosis. Acute CVA ruled in, brain stem pontine ischemic stroke -treat with ASA, and Statin -Lipid panel pending -Neurology consulted, input noted -PT/OT consulted, input noted New onset Dyslipidemia -treat with statin Hypertension -Continue to monitor BP -stop bp due to borderline hypotension History of schizophrenia -receives monthly invega shots -Supportive care DVT PPX -Lovenox -SCD's Disposition: continue inpatient care, inpatient REHAB pending History Interval history: Patient was seen and examined. Follow-up on current diagnosis of TIA. No overnight events reported to me. Patient denies any chest pain, shortness pietro th, nausea/vomiting or severe headaches. Imaging, nursing note, chart, labs and old chart reviewed. Discussed with patient. Hospitalist Physical - Physical exam Narrative exam: Gen: WDWN, NAD, Awake, Alert, Orientated HEENT: NCAT, EOMI, PERRL, OP Clear Neck: supple, no adenopathy, no thyromegaly, no JVD CVS/Heart: RRR, normal S1S2, pulses present bilaterally Chest/Lungs: CTA B, Symmetrical chest expansion, good air entry bilaterally GI/Abdomen: soft, NTND, good bowel sounds, no guarding or rebound /Bladder: no suprapubic tenderness, no CVA or paraspinal tenderness Extermity/Skin: no c/c/e, no obvious rash MSK: FROM x 4 Neuro: CN 2-12 grossly intact, no new focal deficits Psych: calm - Constitutional Vitals: Temp Pulse Resp BP Pulse Ox 98.2 F 88 18 105/71 94 07/03/19 08:47 07/03/19 10:00 07/03/19 10:00 07/03/19 08:47 07/03/19 10:00 Results - Labs CBC & Chem 7: 06/30/19 14:45 06/30/19 14:45 Labs: Laboratory Last Values WBC 6.6 K/mm3 (4.5-11.0) 06/30/19 14:45 RBC 4.69 M/mm3 (3.65-5.03) 06/30/19 14:45 Hgb 14.9 gm/dl (11.8-15.2) 06/30/19 14:45 Hct 44.4 % (35.5-45.6) 06/30/19 14:45 MCV 95 fl (84-94) H 06/30/19 14:45 MCH 32 pg (28-32) 06/30/19 14:45 MCHC 34 % (32-34) 06/30/19 14:45 RDW 12.9 % (13.2-15.2) L 06/30/19 14:45 Plt Count 220 K/mm3 (140-440) 06/30/19 14:45 Lymph % (Auto) 21.6 % (13.4-35.0) 06/30/19 14:45 [place] % (Auto) 7.6 % (0.0-7.3) H 06/30/19 14:45 Eos % (Auto) 1.9 % (0.0-4.3) 06/30/19 14:45 Baso % (Auto) 0.4 % (0.0-1.8) 06/30/19 14:45 Lymph # 1.4 K/mm3 (1.2-5.4) 06/30/19 14:45 [place] # 0.5 K/mm3 (0.0-0.8) 06/30/19 14:45 Eos # 0.1 K/mm3 (0.0-0.4) 06/30/19 14:45 Baso # 0.0 K/mm3 (0.0-0.1) 06/30/19 14:45 Seg Neutrophils % 68.5 % (40.0-70.0) 06/30/19 14:45 Seg Neutrophils # 4.6 K/mm3 (1.8-7.7) 06/30/19 14:45 PT 12.5 Sec. (12.2-14.9) 06/30/19 14:45 INR 0.96 (0.87-1.13) 06/30/19 14:45 Sodium 138 mmol/L (137-145) 06/30/19 14:45 Potassium 4.3 mmol/L (3.6-5.0) 06/30/19 14:45 Chloride 97.5 mmol/L (98-107) L 06/30/19 14:45 Carbon Dioxide 25 mmol/L (22-30) 06/30/19 14:45 20 mmol/L 06/30/19 14:45 BUN 15 mg/dL (9-20) 06/30/19 14:45 1.0 mg/dL (0.8-1.5) 06/30/19 14:45 Estimated GFR > 60 ml/min 06/30/19 14:45 15 % 06/30/19 14:45 Glucose 90 mg/dL (75-100) 06/30/19 14:45 POC Glucose 81 (70-105) 06/30/19 14:41 Calcium 9.9 mg/dL (8.4-10.2) 06/30/19 14:45 Magnesium 2.10 mg/dL (1.7-2.3) 06/30/19 14:45 0.90 mg/dL (0.1-1.2) 06/30/19 14:45 AST 17 units/L (5-40) 06/30/19 14:45 ALT 10 units/L (7-56) 06/30/19 14:45 76 units/L (35-129) 06/30/19 14:45 177 units/L (55-170) H 06/30/19 14:45 < 0.010 ng/mL (0.00-0.029) 07/01/19 15:17 7.8 g/dL (6.3-8.2) 06/30/19 14:45 4.3 g/dL (3.9-5) 06/30/19 14:45 1.2 % 06/30/19 14:45 Triglycerides 105 mg/dL (2-149) 07/01/19 04:54 Cholesterol 221 mg/dL (50-199) H 07/01/19 04:54 173 mg/dL (50-130) H 07/01/19 04:54 46 mg/dL (40-59) 07/01/19 04:54 4.80 % 07/01/19 04:54 Yellow (Yellow) 06/30/19 20:07 Clear (Clear) 06/30/19 20:07 5.0 (5.0-7.0) 06/30/19 20:07 Ur Specific [place] 1.018 (1.003-1.030) 06/30/19 20:07 <15 mg/dl mg/dL (Negative) 06/30/19 20:07 Neg mg/dL (Negative) 06/30/19 20:07 Tr mg/dL (Negative) 06/30/19 20:07 Neg (Negative) 06/30/19 20:07 Neg (Negative) 06/30/19 20:07 Neg (Negative) 06/30/19 20:07 < 2.0 mg/dL (<2.0) 06/30/19 20:07 Ur Leukocyte Esterase Neg (Negative) 06/30/19 20:07 1.0 /HPF (0.0-6.0) 06/30/19 20:07 1.0 /HPF (0.0-6.0) 06/30/19 20:07 Active Medications - Current Medications Current Medications: Generic Name Dose Route Start Last Admin Trade Name Freq PRN Reason Stop Dose Admin Acetaminophen 650 mg 06/30/19 19:37 Tylenol PO Q4H PRN Pain, Mild (1-3) Aspirin 325 mg 07/01/19 10:00 07/03/19 09:39 Aspirin PO 325 mg QDAY JAS Administration Atorvastatin Calcium 40 mg 06/30/19 22:00 07/02/19 21:52 Lipitor PO 40 mg QHS JAS Administration Bisacodyl 10 mg 06/30/19 19:37 Dulcolax [place] QDAY PRN Constipation Diphenhydramine HCl 50 mg 07/03/19 10:52 Benadryl PO QHS PRN Insomnia Docusate Sodium 100 mg 06/30/19 22:00 07/03/19 09:40 Colace PO 100 mg BID REPLACED BY [facility] Administration Enoxaparin Sodium 40 mg 07/01/19 10:00 07/03/19 09:40 Lovenox SUB-Q 40 mg DAILY REPLACED BY [facility] Administration Magnesium Hydroxide 30 ml 06/30/19 20:29 Milk Of Magnesia PO Q4H PRN Constipation Miscellaneous Medication 234 mg 07/03/19 11:00 Paliperidone Palmitate [Invega Sustenna] IM QMONTH REPLACED BY [facility] Nicotine 14 mg 07/01/19 10:00 07/03/19 09:40 Habitrol TD 14 mg QDAY REPLACED BY [facility] Administration Ondansetron HCl 4 mg 06/30/19 19:37 Zofran IV Q6H PRN Nausea And Vomiting Sodium Chloride 10 ml 06/30/19 19:37 Sodium Chloride Flush Syringe 10 Ml IV PRN PRN LINE FLUSH
[2019-07-04] MEDS: ASPIRIN PO SCH (10:11)
[2019-07-04] MEDS: LOVENOX SUB-Q SCH (10:11)
[2019-07-04] MEDS: HABITROL TD SCH (10:11)
[2019-07-04] MEDS: COLACE PO SCH ×2 (10:11→22:17)
--- NOTE | 2019-07-04 16:24 | Progress Note ---
Assessment and Plan Assessment and plan: Patient is a 64-year-old -[place] male with history of schizophrenia, CAD s/p stent, HTN who presents to the [facility] ED with complaints of right leg discomfort, weakness, dizziness, unsteady gait for the past 2 days. * CT head without contrast: IMPRESSION: 1. No definite acute findings. 2. Chronic encephalomalacia in the right anterior temporal lobe and right inferior frontal lobe, likely secondary to remote prior trauma. 3. Moderate deep cerebral white matter hypoattenuation with pattern consistent with chronic microvascular radiographic change. * TTE conclusions: Global LVSF is at the lower limit of normal, estimated EF 50- 55%, mild concentric LVH, mild MVP, mild MR, trace TR, no PFO * Brain MRI without contrast IMPRESSION: 1. Small focus of ischemia seen in the melo leftward of midline, as described above. * Brain MRA without contrast IMPRESSION: 1. Mildly limited exam secondary to mo tion artifact. No appreciable flow limiting stenosis or large vessel occlusion. 2. Probable mild stenosis in the bilateral supraclinoid internal carotid arteries. * pCXR IMPRESSION: 1. No acute findings. * CTA head and neck IMPRESSION: 1. No flow-limiting stenosis or large vessel occlusion of the cervical or intracranial arteries. 2. Mild atherosclerosis in the bilateral intracranial internal carotid arteries, right intracranial vertebral artery, and left carotid bulb without significant stenosis. Acute CVA ruled in, brain stem pontine ischemic stroke -treat with ASA, and Statin -Lipid panel pending -Neurology consulted, input noted -PT/OT consulted, input noted New onset Dyslipidemia -treat with statin Hypertension -Continue to monitor BP -stop bp due to borderline hypotension History of schizophrenia -receives monthly invega shots -Supportive care DVT PPX -Lovenox -SCD's Disposition: continue inpatient care, awaiting on insurance authorization to inpatient REHAB History Interval history: Patient was seen and examined. Follow-up on current diagnosis of TIA. No overnight events reported to me. Patient denies any chest pain, shortness breath, nausea/vomiting or severe headaches. Imaging, nursing note, chart, labs and old chart reviewed. Discussed with patient. Hospitalist Physical - Physical exam Narrative exam: Gen: WDWN, NAD, Awake, Alert, Orientated HEENT: NCAT, EOMI, PERRL, OP Clear Neck: supple, no adenopathy, no thyromegaly, no JVD CVS/Heart: RRR, normal S1S2, pulses present bilaterally Chest/Lungs: CTA B, Symmetrical chest expansion, good air entry bilaterally GI/Abdomen: soft, NTND, good bowel sounds, no guarding or rebound /Bladder: no suprapubic tenderness, no CVA or paraspinal tenderness Extermity/Skin: no c/c/e, no obvious rash MSK: FROM x 4 Neuro: CN 2-12 grossly intact, no new focal deficits Psych: calm - Constitutional Vitals: Temp Pulse Resp BP Pulse Ox 98.6 F 79 18 142/76 95 07/04/19 09:02 07/04/19 11:42 07/04/19 11:42 07/04/19 11:42 07/04/19 11:42 Results - Labs CBC & Chem 7: 06/30/19 14:45 06/30/19 14:45 Labs: Laboratory Last Values WBC 6.6 K/mm3 (4.5-11.0) 06/30/19 14:45 RBC 4.69 M/mm3 (3.65-5.03) 06/30/19 14:45 Hgb 14.9 gm/dl (11.8-15.2) 06/30/19 14:45 Hct 44.4 % (35.5-45.6) 06/30/19 14:45 MCV 95 fl (84-94) H 06/30/19 14:45 MCH 32 pg (28-32) 06/30/19 14:45 MCHC 34 % (32-34) 06/30/19 14:45 RDW 12.9 % (13.2-15.2) L 06/30/19 14:45 Plt Count 220 K/mm3 (140-440) 06/30/19 14:45 Lymph % (Auto) 21.6 % (13.4-35.0) 06/30/19 14:45 [place] % (Auto) 7.6 % (0.0-7.3) H 06/30/19 14:45 Eos % (Auto) 1.9 % (0.0-4.3) 06/30/19 14:45 Baso % (Auto) 0.4 % (0.0-1.8) 06/30/19 14:45 Lymph # 1.4 K/mm3 (1.2-5.4) 06/30/19 14:45 [place] # 0.5 K/mm3 (0.0-0.8) 06/30/19 14:45 Eos # 0.1 K/mm3 (0.0-0.4) 06/30/19 14:45 Baso # 0.0 K/mm3 (0.0-0.1) 06/30/19 14:45 Seg Neutrophils % 68.5 % (40.0-70.0) 06/30/19 14:45 Seg Neutrophils # 4.6 K/mm3 (1.8-7.7) 06/30/19 14:45 PT 12.5 Sec. (12.2-14.9) 06/30/19 14:45 INR 0.96 (0.87-1.13) 06/30/19 14:45 Sodium 138 mmol/L (137-145) 06/30/19 14:45 Potassium 4.3 mmol/L (3.6-5.0) 06/30/19 14:45 Chloride 97.5 mmol/L (98-107) L 06/30/19 14:45 Carbon Dioxide 25 mmol/L (22-30) 06/30/19 14:45 20 mmol/L 06/30/19 14:45 BUN 15 mg/dL (9-20) 06/30/19 14:45 1.0 mg/dL (0.8-1.5) 06/30/19 14:45 Estimated GFR > 60 ml/min 06/30/19 14:45 15 % 06/30/19 14:45 Glucose 90 mg/dL (75-100) 06/30/19 14:45 POC Glucose 81 (70-105) 06/30/19 14:41 Calcium 9.9 mg/dL (8.4-10.2) 06/30/19 14:45 Magnesium 2.10 mg/dL (1.7-2.3) 06/30/19 14:45 0.90 mg/dL (0.1-1.2) 06/30/19 14:45 AST 17 units/L (5-40) 06/30/19 14:45 ALT 10 units/L (7-56) 06/30/19 14:45 76 units/L (35-129) 06/30/19 14:45 177 units/L (55-170) H 06/30/19 14:45 < 0.010 ng/mL (0.00-0.029) 07/01/19 15:17 7.8 g/dL (6.3-8.2) 06/30/19 14:45 4.3 g/dL (3.9-5) 06/30/19 14:45 1.2 % 06/30/19 14:45 Triglycerides 105 mg/dL (2-149) 07/01/19 04:54 Cholesterol 221 mg/dL (50-199) H 07/01/19 04:54 173 mg/dL (50-130) H 07/01/19 04:54 46 mg/dL (40-59) 07/01/19 04:54 4.80 % 07/01/19 04:54 Yellow (Yellow) 06/30/19 20:07 Clear (Clear) 06/30/19 20:07 5.0 (5.0-7.0) 06/30/19 20:07 Ur Specific [place] 1.018 (1.003-1.030) 06/30/19 20:07 <15 mg/dl mg/dL (Negative) 06/30/19 20:07 Neg mg/dL (Negative) 06/30/19 20:07 Tr mg/dL (Negative) 06/30/19 20:07 Neg (Negative) 06/30/19 20:07 Neg (Negative) 06/30/19 20:07 Neg (Negative) 06/30/19 20:07 < 2.0 mg/dL (<2.0) 06/30/19 20:07 Ur Leukocyte Esterase Neg (Negative) 06/30/19 20:07 1.0 /HPF (0.0-6.0) 06/30/19 20:07 1.0 /HPF (0.0-6.0) 06/30/19 20:07 Active Medications - Current Medications Current Medications: Generic Name Dose Route Start Last Admin Trade Name Freq PRN Reason Stop Dose Admin Acetaminophen 650 mg 06/30/19 19:37 Tylenol PO Q4H PRN Pain, Mild (1-3) Aspirin 325 mg 07/01/19 10:00 07/04/19 10:11 Aspirin PO 325 mg QDAY JAS Administration Atorvastatin Calcium 40 mg 06/30/19 22:00 07/03/19 22:15 Lipitor PO 40 mg QHS JAS Administration Bisacodyl 10 mg 06/30/19 19:37 Dulcolax [place] QDAY PRN Constipation Diphenhydramine HCl 50 mg 07/03/19 10:52 Benadryl PO QHS PRN Insomnia Docusate Sodium 100 mg 06/30/19 22:00 07/04/19 10:11 Colace PO 100 mg BID [facility] Administration Enoxaparin Sodium 40 mg 07/01/19 10:00 07/04/19 10:11 Lovenox SUB-Q 40 mg DAILY [facility] Administration Magnesium Hydroxide 30 ml 06/30/19 20:29 Milk Of Magnesia PO Q4H PRN Constipation Miscellaneous Medication 234 mg 07/03/19 11:00 07/04/19 14:35 Paliperidone Palmitate [Invega Sustenna] IM 234 mg QMONTH [facility] Administration Nicotine 14 mg 07/01/19 10:00 07/04/19 10:11 Habitrol TD 14 mg QDAY [facility] Administration Ondansetron HCl 4 mg 06/30/19 19:37 Zofran IV Q6H PRN Nausea And Vomiting Sodium Chloride 10 ml 06/30/19 19:37 Sodium Chloride Flush Syringe 10 Ml IV PRN PRN LINE FLUSH
[2019-07-05] MEDS: LOVENOX SUB-Q SCH (09:06)
[2019-07-05] MEDS: HABITROL TD SCH (09:07)
[2019-07-05] MEDS: ASPIRIN PO SCH (09:08)
[2019-07-05] MEDS: COLACE PO SCH ×2 (09:08→21:00)
--- NOTE | 2019-07-05 12:53 | Progress Note ---
Assessment and Plan - Patient Problems (1) Stroke Current Visit: Yes Status: Acute (2) Acute CVA (cerebrovascular accident) Current Visit: Yes Status: Acute Plan to address problem: Patient with acute CVA MRI focal area on melo. Continue aggressive antilipid therapy. Antiplatelet therapy. Await physical therapy. Patient is doing well swallowing eating without any difficulties no aspiration at this point. Would determine home versus rehabilitation. Patient does live by himself. We'll most likely require placement he lives by self (3) Schizophrenia Current Visit: Yes Status: Acute Qualifiers: Schizophrenia type: undifferentiated schizophrenia Qualified Code(s): F20.3 - Undifferentiated schizophrenia (4) Hyperlipidemia Current Visit: Yes Status: Acute Plan to address problem: Aspirin atorvastatin. Goal LDL less than 70. History Interval history: Patient in bed resting comfortably eating well. Patient does have some weakness on the 8 hand and problem with dexterity on right hand. Also has weakness in right leg with lifting limb. Dorsiflexion and plantar flexion seem equal. Majority of weakness seems that hip area and popliteal area. No pain. Patient does have correcting in which family says is secondary to one of his medications. I do not feel that way. Hospitalist Physical - Constitutional Vitals: Temp Pulse Resp BP Pulse Ox 98.6 F 84 20 145/82 98 07/05/19 05:44 07/05/19 05:44 07/05/19 05:44 07/05/19 05:44 07/05/19 05:44 General appearance: Present: no acute distress, mild distress - EENT Eyes: Present: PERRL, EOM intact ENT: hearing intact, clear oral mucosa, dentition normal, poor dentition, no oropharyngeal erythema, no thrush - Neck Neck: Present: supple, normal ROM - Respiratory Respiratory effort: normal Respiratory: bilateral: CTA - Cardiovascular Rhythm: regular - Extremities Extremities: no ischemia, pulses intact, pulses symmetrical, No edema, normal temperature, normal color Peripheral Pulses: within normal limits - Abdominal General gastrointestinal: soft, non-tender, non-distended, normal bowel sounds - Integumentary Integumentary: Present: clear, warm, dry - Psychiatric Psychiatric: appropriate mood/affect, intact judgment & insight - Neurologic Neurologic: focal deficits, other (right sided weakness.) Results - Labs CBC & Chem 7: 06/30/19 14:45 06/30/19 14:45 Labs: Laboratory Last Values WBC 6.6 K/mm3 (4.5-11.0) 06/30/19 14:45 RBC 4.69 M/mm3 (3.65-5.03) 06/30/19 14:45 Hgb 14.9 gm/dl (11.8-15.2) 06/30/19 14:45 Hct 44.4 % (35.5-45.6) 06/30/19 14:45 MCV 95 fl (84-94) H 06/30/19 14:45 MCH 32 pg (28-32) 06/30/19 14:45 MCHC 34 % (32-34) 06/30/19 14:45 RDW 12.9 % (13.2-15.2) L 06/30/19 14:45 Plt Count 220 K/mm3 (140-440) 06/30/19 14:45 Lymph % (Auto) 21.6 % (13.4-35.0) 06/30/19 14:45 [place] % (Auto) 7.6 % (0.0-7.3) H 06/30/19 14:45 Eos % (Auto) 1.9 % (0.0-4.3) 06/30/19 14:45 Baso % (Auto) 0.4 % (0.0-1.8) 06/30/19 14:45 Lymph # 1.4 K/mm3 (1.2-5.4) 06/30/19 14:45 [place] # 0.5 K/mm3 (0.0-0.8) 06/30/19 14:45 Eos # 0.1 K/mm3 (0.0-0.4) 06/30/19 14:45 Baso # 0.0 K/mm3 (0.0-0.1) 06/30/19 14:45 Seg Neutrophils % 68.5 % (40.0-70.0) 06/30/19 14:45 Seg Neutrophils # 4.6 K/mm3 (1.8-7.7) 06/30/19 14:45 PT 12.5 Sec. (12.2-14.9) 06/30/19 14:45 INR 0.96 (0.87-1.13) 06/30/19 14:45 Sodium 138 mmol/L (137-145) 06/30/19 14:45 Potassium 4.3 mmol/L (3.6-5.0) 06/30/19 14:45 Chloride 97.5 mmol/L (98-107) L 06/30/19 14:45 Carbon Dioxide 25 mmol/L (22-30) 06/30/19 14:45 20 mmol/L 06/30/19 14:45 BUN 15 mg/dL (9-20) 06/30/19 14:45 1.0 mg/dL (0.8-1.5) 06/30/19 14:45 Estimated GFR > 60 ml/min 06/30/19 14:45 15 % 06/30/19 14:45 Glucose 90 mg/dL (75-100) 06/30/19 14:45 POC Glucose 81 (70-105) 06/30/19 14:41 Calcium 9.9 mg/dL (8.4-10.2) 06/30/19 14:45 Magnesium 2.10 mg/dL (1.7-2.3) 06/30/19 14:45 0.90 mg/dL (0.1-1.2) 06/30/19 14:45 AST 17 units/L (5-40) 06/30/19 14:45 ALT 10 units/L (7-56) 06/30/19 14:45 76 units/L (35-129) 06/30/19 14:45 177 units/L (55-170) H 06/30/19 14:45 < 0.010 ng/mL (0.00-0.029) 07/01/19 15:17 7.8 g/dL (6.3-8.2) 06/30/19 14:45 4.3 g/dL (3.9-5) 06/30/19 14:45 1.2 % 06/30/19 14:45 Triglycerides 105 mg/dL (2-149) 07/01/19 04:54 Cholesterol 221 mg/dL (50-199) H 07/01/19 04:54 173 mg/dL (50-130) H 07/01/19 04:54 46 mg/dL (40-59) 07/01/19 04:54 4.80 % 07/01/19 04:54 Yellow (Yellow) 06/30/19 20:07 Clear (Clear) 06/30/19 20:07 5.0 (5.0-7.0) 06/30/19 20:07 Ur Specific [place] 1.018 (1.003-1.030) 06/30/19 20:07 <15 mg/dl mg/dL (Negative) 06/30/19 20:07 Neg mg/dL (Negative) 06/30/19 20:07 Tr mg/dL (Negative) 06/30/19 20:07 Neg (Negative) 06/30/19 20:07 Neg (Negative) 06/30/19 20:07 Neg (Negative) 06/30/19 20:07 < 2.0 mg/dL (<2.0) 06/30/19 20:07 Ur Leukocyte Esterase Neg (Negative) 06/30/19 20:07 1.0 /HPF (0.0-6.0) 06/30/19 20:07 1.0 /HPF (0.0-6.0) 06/30/19 20:07 - Imaging and Cardiology Chest x-ray: report reviewed MRI - head: report reviewed Venous US: other (echocardiogram. ED) Imaging and Cardiology: MRA Active Medications - Current Medications Current Medications: Generic Name Dose Route Start Last Admin Trade Name Freq PRN Reason Stop Dose Admin Acetaminophen 650 mg 06/30/19 19:37 Tylenol PO Q4H PRN Pain, Mild (1-3) Aspirin 325 mg 07/01/19 10:00 07/05/19 09:08 Aspirin PO 325 mg QDAY JAS Administration Atorvastatin Calcium 40 mg 06/30/19 22:00 07/04/19 22:17 Lipitor PO 40 mg QHS JAS Administration Bisacodyl 10 mg 06/30/19 19:37 Dulcolax IN QDAY PRN Constipation Diphenhydramine HCl 50 mg 07/03/19 10:52 Benadryl PO QHS PRN Insomnia Docusate Sodium 100 mg 06/30/19 22:00 07/05/19 09:08 Colace PO 100 mg BID JAS Administration Enoxaparin Sodium 40 mg 07/01/19 10:00 07/05/19 09:06 Lovenox SUB-Q 40 mg DAILY JAS Administration Magnesium Hydroxide 30 ml 06/30/19 20:29 Milk Of Magnesia PO Q4H PRN Constipation Miscellaneous Medication 234 mg 07/03/19 11:00 07/04/19 14:35 Paliperidone Palmitate [Invega Sustenna] IM 234 mg QMONTH JAS Administration Nicotine 14 mg 07/01/19 10:00 07/05/19 09:07 Habitrol TD 14 mg QDAY JAS Administration Ondansetron HCl 4 mg 06/30/19 19:37 Zofran IV Q6H PRN Nausea And Vomiting Sodium Chloride 10 ml 06/30/19 19:37 Sodium Chloride Flush Syringe 10 Ml IV PRN PRN LINE FLUSH
[2019-07-05] MEDS: SODIUM CHLORIDE FLUSH SYRINGE 10 ML IV PRN (21:00)
[2019-07-06] MEDS: COLACE PO SCH ×2 (11:04→22:14)
[2019-07-06] MEDS: HABITROL TD SCH (11:04)
[2019-07-06] MEDS: ASPIRIN PO SCH (11:04)
[2019-07-06] MEDS: LOVENOX SUB-Q SCH (11:05)
--- NOTE | 2019-07-06 16:23 | Progress Note ---
Assessment and Plan - Patient Problems (1) Stroke Current Visit: Yes Status: Acute Plan to address problem: She was stroke currently on her platelet anti-thrombin awaiting placement for residential facility. (2) Acute CVA (cerebrovascular accident) Current Visit: Yes Status: Acute Plan to address problem: Patient with acute CVA MRI focal area on melo. Continue aggressive antilipid therapy. Antiplatelet therapy. Await physical therapy. Patient is doing well swallowing eating without any difficulties no aspiration at this point. Would determine home versus rehabilitation. Patient does live by himself. We'll most likely require placement he lives by self (3) Schizophrenia Current Visit: Yes Status: Acute Qualifiers: Schizophrenia type: undifferentiated schizophrenia Qualified Code(s): F20.3 - Undifferentiated schizophrenia Plan to address problem: Continue antipsychotic medications when necessary with schizophrenia. Has been stable. No manic episodes at all. (4) Hyperlipidemia Current Visit: Yes Status: Acute Plan to address problem: Aspirin atorvastatin. Goal LDL less than 70. History Interval history: Patient in bed resting comfortably eating well. awaiting placement. no new events overnight Hospitalist Physical - Constitutional Vitals: Temp Pulse Resp BP Pulse Ox 98.1 F 74 20 133/83 97 07/06/19 11:22 07/06/19 11:22 07/06/19 11:22 07/06/19 11:22 07/06/19 11:22 General appearance: Present: no acute distress, mild distress - EENT Eyes: Present: PERRL, EOM intact ENT: hearing intact, clear oral mucosa, dentition normal, poor dentition, no or opharyngeal erythema, no thrush - Neck Neck: Present: supple, normal ROM - Respiratory Respiratory: bilateral: CTA - Cardiovascular Rhythm: regular - Extremities Extremities: no ischemia, pulses intact, pulses symmetrical, No edema, normal temperature, normal color Peripheral Pulses: within normal limits - Abdominal General gastrointestinal: soft, non-tender, non-distended, no rigid, no normal bowel sounds - Integumentary Integumentary: Present: clear, warm, dry - Psychiatric Psychiatric: appropriate mood/affect - Neurologic Neurologic: focal deficits (right sided weakness proximal right hip/leg), other Results - Labs CBC & Chem 7: 06/30/19 14:45 06/30/19 14:45 Labs: Laboratory Last Values WBC 6.6 K/mm3 (4.5-11.0) 06/30/19 14:45 RBC 4.69 M/mm3 (3.65-5.03) 06/30/19 14:45 Hgb 14.9 gm/dl (11.8-15.2) 06/30/19 14:45 Hct 44.4 % (35.5-45.6) 06/30/19 14:45 MCV 95 fl (84-94) H 06/30/19 14:45 MCH 32 pg (28-32) 06/30/19 14:45 MCHC 34 % (32-34) 06/30/19 14:45 RDW 12.9 % (13.2-15.2) L 06/30/19 14:45 Plt Count 220 K/mm3 (140-440) 06/30/19 14:45 Lymph % (Auto) 21.6 % (13.4-35.0) 06/30/19 14:45 [place] % (Auto) 7.6 % (0.0-7.3) H 06/30/19 14:45 Eos % (Auto) 1.9 % (0.0-4.3) 06/30/19 14:45 Baso % (Auto) 0.4 % (0.0-1.8) 06/30/19 14:45 Lymph # 1.4 K/mm3 (1.2-5.4) 06/30/19 14:45 [place] # 0.5 K/mm3 (0.0-0.8) 06/30/19 14:45 Eos # 0.1 K/mm3 (0.0-0.4) 06/30/19 14:45 Baso # 0.0 K/mm3 (0.0-0.1) 06/30/19 14:45 Seg Neutrophils % 68.5 % (40.0-70.0) 06/30/19 14:45 Seg Neutrophils # 4.6 K/mm3 (1.8-7.7) 06/30/19 14:45 PT 12.5 Sec. (12.2-14.9) 06/30/19 14:45 INR 0.96 (0.87-1.13) 06/30/19 14:45 Sodium 138 mmol/L (137-145) 06/30/19 14:45 Potassium 4.3 mmol/L (3.6-5.0) 06/30/19 14:45 Chloride 97.5 mmol/L (98-107) L 06/30/19 14:45 Carbon Dioxide 25 mmol/L (22-30) 06/30/19 14:45 20 mmol/L 06/30/19 14:45 BUN 15 mg/dL (9-20) 06/30/19 14:45 1.0 mg/dL (0.8-1.5) 06/30/19 14:45 Estimated GFR > 60 ml/min 06/30/19 14:45 15 % 06/30/19 14:45 Glucose 90 mg/dL (75-100) 06/30/19 14:45 POC Glucose 81 (70-105) 06/30/19 14:41 Calcium 9.9 mg/dL (8.4-10.2) 06/30/19 14:45 Magnesium 2.10 mg/dL (1.7-2.3) 06/30/19 14:45 0.90 mg/dL (0.1-1.2) 06/30/19 14:45 AST 17 units/L (5-40) 06/30/19 14:45 ALT 10 units/L (7-56) 06/30/19 14:45 76 units/L (35-129) 06/30/19 14:45 177 units/L (55-170) H 06/30/19 14:45 < 0.010 ng/mL (0.00-0.029) 07/01/19 15:17 7.8 g/dL (6.3-8.2) 06/30/19 14:45 4.3 g/dL (3.9-5) 06/30/19 14:45 1.2 % 06/30/19 14:45 Triglycerides 105 mg/dL (2-149) 07/01/19 04:54 Cholesterol 221 mg/dL (50-199) H 07/01/19 04:54 173 mg/dL (50-130) H 07/01/19 04:54 46 mg/dL (40-59) 07/01/19 04:54 4.80 % 07/01/19 04:54 Yellow (Yellow) 06/30/19 20:07 Clear (Clear) 06/30/19 20:07 5.0 (5.0-7.0) 06/30/19 20:07 Ur Specific [place] 1.018 (1.003-1.030) 06/30/19 20:07 <15 mg/dl mg/dL (Negative) 06/30/19 20:07 Neg mg/dL (Negative) 06/30/19 20:07 Tr mg/dL (Negative) 06/30/19 20:07 Neg (Negative) 06/30/19 20:07 Neg (Negative) 06/30/19 20:07 Neg (Negative) 06/30/19 20:07 < 2.0 mg/dL (<2.0) 06/30/19 20:07 Ur Leukocyte Esterase Neg (Negative) 06/30/19 20:07 1.0 /HPF (0.0-6.0) 06/30/19 20:07 1.0 /HPF (0.0-6.0) 06/30/19 20:07 Active Medications - Current Medications Current Medications: Generic Name Dose Route Start Last Admin Trade Name Freq PRN Reason Stop Dose Admin Acetaminophen 650 mg 06/30/19 19:37 Tylenol PO Q4H PRN Pain, Mild (1-3) Aspirin 325 mg 07/01/19 10:00 07/06/19 11:04 Aspirin PO 325 mg QDAY JAS Administration Atorvastatin Calcium 40 mg 06/30/19 22:00 07/05/19 21:00 Lipitor PO 40 mg QHS JAS Administration Bisacodyl 10 mg 06/30/19 19:37 Dulcolax [place] QDAY PRN Constipation Diphenhydramine HCl 50 mg 07/03/19 10:52 Benadryl PO QHS PRN Insomnia Docusate Sodium 100 mg 06/30/19 22:00 07/06/19 11:04 Colace PO 100 mg BID JAS Administration Enoxaparin Sodium 40 mg 07/01/19 10:00 07/06/19 11:05 Lovenox SUB-Q 40 mg DAILY JAS Administration Magnesium Hydroxide 30 ml 06/30/19 20:29 Milk Of Magnesia PO Q4H PRN Constipation Miscellaneous Medication 234 mg 07/03/19 11:00 07/04/19 14:35 Paliperidone Palmitate [Invega Sustenna] IM 234 mg QMONTH JAS Administration Nicotine 14 mg 07/01/19 10:00 09/01/19 11:04 Habitrol TD 14 mg QDAY JAS Administration Ondansetron HCl 4 mg 06/30/19 19:37 Zofran IV Q6H PRN Nausea And Vomiting Sodium Chloride 10 ml 06/30/19 19:37 07/05/19 21:00 Sodium Chloride Flush Syringe 10 Ml IV 10 ml PRN PRN Administration LINE FLUSH
[2019-07-07] MEDS: LOVENOX SUB-Q SCH (11:24)
[2019-07-07] MEDS: HABITROL TD SCH (11:24)
[2019-07-07] MEDS: ASPIRIN PO SCH (11:24)
[2019-07-07] MEDS: COLACE PO SCH ×2 (11:24→22:41)
[2019-07-07] MEDS: TYLENOL PO PRN (12:07)
--- NOTE | 2019-07-07 13:44 | Progress Note ---
Assessment and Plan Assessment and plan: Patient is a 64-year-old -Swiss male with history of schizophrenia, CAD s/p stent, HTN who presents to the [facility] ED with complaints of right leg discomfort, weakness, dizziness, unsteady gait for the past 2 days. * CT head without contrast: IMPRESSION: 1. No definite acute findings. 2. Chronic encephalomalacia in the right anterior temporal lobe and right inferior frontal lobe, likely secondary to remote prior trauma. 3. Moderate deep cerebral white matter hypoattenuation with pattern consistent with chronic microvascular radiographic change. * TTE conclusions: Global LVSF is at the lower limit of normal, estimated EF 50- 55%, mild concentric LVH, mild MVP, mild MR, trace TR, no PFO * Brain MRI without contrast IMPRESSION: 1. Small focus of ischemia seen in the melo leftward of midline, as described above. * Brain MRA without contrast IMPRESSION: 1. Mildly limited exam secondary to mo tion artifact. No appreciable flow limiting stenosis or large vessel occlusion. 2. Probable mild stenosis in the bilateral supraclinoid internal carotid arteries. * pCXR IMPRESSION: 1. No acute findings. * CTA head and neck IMPRESSION: 1. No flow-limiting stenosis or large vessel occlusion of the cervical or intracranial arteries. 2. Mild atherosclerosis in the bilateral intracranial internal carotid arteries, right intracranial vertebral artery, and left carotid bulb without significant stenosis. Acute CVA ruled in, brain stem pontine ischemic stroke -treat with ASA, and Statin -Lipid panel pending -Neurology consulted, input noted -PT/OT consulted, input noted New onset Dyslipidemia -treat with statin Hypertension -Continue to monitor BP -stop bp due to borderline hypotension History of schizophrenia -receives monthly invega shots -Supportive care DVT PPX -Lovenox -SCD's Disposition: continue inpatient care, awaiting on insurance authorization to inpatient REHAB History Interval history: Patient was seen and examined. Follow-up on current diagnosis of TIA. No overnight events reported to me. Patient denies any chest pain, shortness breath, nausea/vomiting or severe headaches. Imaging, nursing note, chart, labs and old chart reviewed. Discussed with patient. Hospitalist Physical - Physical exam Narrative exam: Gen: WDWN, NAD, Awake, Alert, Orientated HEENT: NCAT, EOMI, PERRL, OP Clear Neck: supple, no adenopathy, no thyromegaly, no JVD CVS/Heart: RRR, normal S1S2, pulses present bilaterally Chest/Lungs: CTA B, Symmetrical chest expansion, good air entry bilaterally GI/Abdomen: soft, NTND, good bowel sounds, no guarding or rebound /Bladder: no suprapubic tenderness, no CVA or paraspinal tenderness Extermity/Skin: no c/c/e, no obvious rash MSK: FROM x 4 Neuro: CN 2-12 grossly intact, no new focal deficits Psych: calm - Constitutional Vitals: Temp Pulse Resp BP Pulse Ox 97.7 F 75 24 149/85 99 07/07/19 04:57 07/07/19 04:57 07/07/19 04:57 07/07/19 04:57 07/07/19 04:57 General appearance: Present: no acute distress Results - Labs CBC & Chem 7: 06/30/19 14:45 06/30/19 14:45 Labs: Laboratory Last Values WBC 6.6 K/mm3 (4.5-11.0) 06/30/19 14:45 RBC 4.69 M/mm3 (3.65-5.03) 06/30/19 14:45 Hgb 14.9 gm/dl (11.8-15.2) 06/30/19 14:45 Hct 44.4 % (35.5-45.6) 06/30/19 14:45 MCV 95 fl (84-94) H 06/30/19 14:45 MCH 32 pg (28-32) 06/30/19 14:45 MCHC 34 % (32-34) 06/30/19 14:45 RDW 12.9 % (13.2-15.2) L 06/30/19 14:45 Plt Count 220 K/mm3 (140-440) 06/30/19 14:45 Lymph % (Auto) 21.6 % (13.4-35.0) 06/30/19 14:45 [place] % (Auto) 7.6 % (0.0-7.3) H 06/30/19 14:45 Eos % (Auto) 1.9 % (0.0-4.3) 06/30/19 14:45 Baso % (Auto) 0.4 % (0.0-1.8) 06/30/19 14:45 Lymph # 1.4 K/mm3 (1.2-5.4) 06/30/19 14:45 [place] # 0.5 K/mm3 (0.0-0.8) 06/30/19 14:45 Eos # 0.1 K/mm3 (0.0-0.4) 06/30/19 14:45 Baso # 0.0 K/mm3 (0.0-0.1) 06/30/19 14:45 Seg Neutrophils % 68.5 % (40.0-70.0) 06/30/19 14:45 Seg Neutrophils # 4.6 K/mm3 (1.8-7.7) 06/30/19 14:45 PT 12.5 Sec. (12.2-14.9) 06/30/19 14:45 INR 0.96 (0.87-1.13) 06/30/19 14:45 Sodium 138 mmol/L (137-145) 06/30/19 14:45 Potassium 4.3 mmol/L (3.6-5.0) 06/30/19 14:45 Chloride 97.5 mmol/L (98-107) L 06/30/19 14:45 Carbon Dioxide 25 mmol/L (22-30) 06/30/19 14:45 20 mmol/L 06/30/19 14:45 BUN 15 mg/dL (9-20) 06/30/19 14:45 1.0 mg/dL (0.8-1.5) 06/30/19 14:45 Estimated GFR > 60 ml/min 06/30/19 14:45 15 % 06/30/19 14:45 Glucose 90 mg/dL (75-100) 06/30/19 14:45 POC Glucose 81 (70-105) 06/30/19 14:41 Calcium 9.9 mg/dL (8.4-10.2) 06/30/19 14:45 Magnesium 2.10 mg/dL (1.7-2.3) 06/30/19 14:45 0.90 mg/dL (0.1-1.2) 06/30/19 14:45 AST 17 units/L (5-40) 06/30/19 14:45 ALT 10 units/L (7-56) 06/30/19 14:45 76 units/L (35-129) 06/30/19 14:45 177 units/L (55-170) H 06/30/19 14:45 < 0.010 ng/mL (0.00-0.029) 07/01/19 15:17 7.8 g/dL (6.3-8.2) 06/30/19 14:45 4.3 g/dL (3.9-5) 06/30/19 14:45 1.2 % 06/30/19 14:45 Triglycerides 105 mg/dL (2-149) 07/01/19 04:54 Cholesterol 221 mg/dL (50-199) H 07/01/19 04:54 173 mg/dL (50-130) H 07/01/19 04:54 46 mg/dL (40-59) 07/01/19 04:54 4.80 % 07/01/19 04:54 Yellow (Yellow) 06/30/19 20:07 Clear (Clear) 06/30/19 20:07 5.0 (5.0-7.0) 06/30/19 20:07 Ur Specific [place] 1.018 (1.003-1.030) 06/30/19 20:07 <15 mg/dl mg/dL (Negative) 06/30/19 20:07 Neg mg/dL (Negative) 06/30/19 20:07 Tr mg/dL (Negative) 06/30/19 20:07 Neg (Negative) 06/30/19 20:07 Neg (Negative) 06/30/19 20:07 Neg (Negative) 06/30/19 20:07 < 2.0 mg/dL (<2.0) 06/30/19 20:07 Ur Leukocyte Esterase Neg (Negative) 06/30/19 20:07 1.0 /HPF (0.0-6.0) 06/30/19 20:07 1.0 /HPF (0.0-6.0) 06/30/19 20:07 Active Medications - Current Medications Current Medications: Generic Name Dose Route Start Last Admin Trade Name Freq PRN Reason Stop Dose Admin Acetaminophen 650 mg 06/30/19 19:37 07/07/19 12:07 Tylenol PO 650 mg Q4H PRN Administration Pain, Mild (1-3) Aspirin 325 mg 07/01/19 10:00 07/07/19 11:24 Aspirin PO 325 mg QDAY JAS Administration Atorvastatin Calcium 40 mg 06/30/19 22:00 07/06/19 22:15 Lipitor PO 40 mg QHS JAS Administration Bisacodyl 10 mg 06/30/19 19:37 Dulcolax [place] QDAY PRN Constipation Diphenhydramine HCl 50 mg 07/03/19 10:52 Benadryl PO QHS PRN Insomnia Docusate Sodium 100 mg 06/30/19 22:00 07/07/19 11:24 Colace PO 100 mg BID JAS Administration Enoxaparin Sodium 40 mg 07/01/19 10:00 07/07/19 11:24 Lovenox SUB-Q 40 mg DAILY JAS Administration Magnesium Hydroxide 30 ml 06/30/19 20:29 Milk Of Magnesia PO Q4H PRN Constipation Miscellaneous Medication 234 mg 07/03/19 11:00 07/04/19 14:35 Paliperidone Palmitate [Invega Sustenna] IM 234 mg QMONTH JAS Administration Nicotine 14 mg 07/01/19 10:00 07/07/19 11:24 Habitrol TD 14 mg QDAY JAS Administration Ondansetron HCl 4 mg 06/30/19 19:37 Zofran IV Q6H PRN Nausea And Vomiting Sodium Chloride 10 ml 06/30/19 19:37 07/05/19 21:00 Sodium Chloride Flush Syringe 10 Ml IV 10 ml PRN PRN Administration LINE FLUSH Nutrition/Malnutrition Assess - Dietary Evaluation Nutrition/Malnutrition Findings: Nutrition Notes Start: 07/07/19 12:43 Freq: Status: Active Protocol: Document 07/07/19 12:43 DHARA (Rec: 07/07/19 12:44 DHARA [email or web address]) Nutrition Notes Need for Assessment generated from: LOS Initial or Follow up Brief Note Height 6 ft 1 in Weight 108.8 kg Usual Body Weight 105.9 kg [place] Body Weight (kg) 83.63 BMI 31.6 Subjective/Other Information Pt screened for LOS. No PO intakes documented since admission. Pt reports good appetite and that he has been consuming all of his meals. He asks for more food. Awaiting placement. Nutrition Intervention Revisit per MD consult or patient Sign Off request:
[2019-07-08 06:39] LABS: Hematocrit 38.4 % (35.5-45.6); Hemoglobin 13.1 gm/dl (11.8-15.2); Mean Corpuscular HGB Conc 34 % (32-34); Mean Corpuscular Volume 94 fl (84-94); Platelet Count 192 K/mm3 (140-440); Red Blood Count 4.07 M/mm3 (3.65-5.03); Red Cell Distribution Width 12.3 % (13.2-15.2)
[2019-07-08 07:00] LABS: BUN/Creatinine Ratio 16; Blood Urea Nitrogen 13 mg/dL (9-20); Calcium 9.3 mg/dL (8.4-10.2); Hemolysis Index 4
[2019-07-08] MEDS: COLACE PO SCH ×2 (10:41→21:12)
[2019-07-08] MEDS: LOVENOX SUB-Q SCH (10:41)
[2019-07-08] MEDS: HABITROL TD SCH (10:41)
[2019-07-08] MEDS: ASPIRIN PO SCH (10:41)
--- NOTE | 2019-07-08 15:48 | Progress Note ---
Assessment and Plan /Acute CVA ruled in, brain stem pontine ischemic stroke -treat with ASA, and Statin -Lipid panel pending -Neurology consulted, input noted -PT/OT consulted, input noted /New onset Dyslipidemia -treat with statin /Hypertension -Continue to monitor BP -stop bp due to borderline hypotension /History of schizophrenia -receives monthly invega shots -Supportive care /DVT PPX -Lovenox -SCD's Disposition: continue inpatient care, awaiting on insurance authorization to inpatient REHAB Brief History Patient is a 64-year-old -[place] male with history of schizophrenia, CAD s/p stent, HTN who presents to the [facility] ED with complaints of right leg discomfort, weakness, dizziness, unsteady gait for the past 2 days. * CT head without contrast: IMPRESSION: 1. No definite acute findings. 2. Chronic encephalomalacia in the right anterior temporal lobe and right inferior frontal lobe, likely secondary to remote prior trauma. 3. Moderate deep cerebral white matter hypoattenuation with pattern consistent with chronic microvascular radiographic change. * TTE conclusions: Global LVSF is at the lower limit of normal, estimated EF 50- 55%, mild concentric LVH, mild MVP, mild MR, trace TR, no PFO * Brain MRI without contrast IMPRESSION: 1. Small focus of ischemia seen in the melo leftward of midline, as described above. * Brain MRA without contrast IMPRESSION: 1. Mildly limited exam secondary to motion artifact. No appreciable flow limiting stenosis or large vessel occlusion. 2. Probable mild stenosis in the bilateral supraclinoid internal carotid arteries. * pCXR IMPRESSION: 1. No acute findings. * CTA head and neck IMPRESSION: 1. No flow-limiting stenosis or large vessel occlusion of the cervical or intracranial arteries. 2. Mild atherosclerosis in the bilateral intracranial internal carotid arteries, right intracranial vertebral artery, and left carotid bulb without significant stenosis. Hospitalist Physical Gen: WDWN, NAD, Awake, Alert, Orientated HEENT: NCAT, EOMI, PERRL, OP Clear Neck: supple, no adenopathy, no thyromegaly, no JVD CVS/Heart: RRR, normal S1S2, pulses present bilaterally Chest/Lungs: CTA B, Symmetrical chest expansion, good air entry bilaterally GI/Abdomen: soft, NTND, good bowel sounds, no guarding or rebound /Bladder: no suprapubic tenderness, no CVA or paraspinal tenderness Extermity/Skin: no c/c/e, no obvious rash MSK: FROM x 4 Neuro: CN 2-12 grossly intact, no new focal deficits Psych: calm Subjective Date of service: 07/08/19 Principal diagnosis: Stroke Interval history: Patient seen and examined. Medical records and medication list reviewed. No acute event overnight noted by the RN. Patient denies any chest pain or difficulty breathing. Patient is tolerating diet. Discussed plan of care at bedside with patient. Objective - Constitutional Vitals: Vital Signs - 12hr 07/08/19 07/08/19 06:12 12:06 Temperature 98.8 F 98.7 F Pulse Rate 69 73 Respiratory 20 20 Rate Blood Pressure 122/78 156/86 O2 Sat by Pulse 97 97 Oximetry - Labs CBC & Chem 7: 07/08/19 05:37 07/08/19 05:37 Labs: Abnormal lab results 07/08/19 07/08/19 Range/Units 05:37 05:37 RDW 12.3 L (13.2-15.2) % Sodium 136 L (137-145) mmol/L
[2019-07-09] MEDS: HABITROL TD SCH (13:46)
[2019-07-09] MEDS: TYLENOL PO PRN (13:46)
[2019-07-09] MEDS: ASPIRIN PO SCH (13:46)
[2019-07-09] MEDS: COLACE PO SCH ×2 (13:47→21:19)
[2019-07-09] MEDS: LOVENOX SUB-Q SCH (13:47)
[2019-07-09] MEDS: SODIUM CHLORIDE FLUSH SYRINGE 10 ML IV PRN (13:50)
--- NOTE | 2019-07-09 17:34 | Progress Note ---
Assessment and Plan /Acute CVA ruled in, brain stem pontine ischemic stroke -treat with ASA, and Statin -Lipid panel pending -Neurology consulted, input noted -PT/OT consulted, input noted /New onset Dyslipidemia -treat with statin /Hypertension -Continue to monitor BP -stop bp due to borderline hypotension /History of schizophrenia -receives monthly invega shots -Supportive care /DVT PPX -Lovenox -SCD's Disposition: continue inpatient care, awaiting on insurance authorization to inpatient REHAB Brief History Patient is a 64-year-old -Indian male with history of schizophrenia, CAD s/p stent, HTN who presents to the [facility] ED with complaints of right leg discomfort, weakness, dizziness, unsteady gait for the past 2 days. * CT head without contrast: IMPRESSION: 1. No definite acute findings. 2. Chronic encephalomalacia in the right anterior temporal lobe and right inferior frontal lobe, likely secondary to remote prior trauma. 3. Moderate deep cerebral white matter hypoattenuation with pattern consistent with chronic microvascular radiographic change. * TTE conclusions: Global LVSF is at the lower limit of normal, estimated EF 50- 55%, mild concentric LVH, mild MVP, mild MR, trace TR, no PFO * Brain MRI without contrast IMPRESSION: 1. Small focus of ischemia seen in the melo leftward of midline, as described above. * Brain MRA without contrast IMPRESSION: 1. Mildly limited exam secondary to motion artifact. No appreciable flow limiting stenosis or large vessel occlusion. 2. Probable mild stenosis in the bilateral supraclinoid internal carotid arteries. * pCXR IMPRESSION: 1. No acute findings. * CTA head and neck IMPRESSION: 1. No flow-limiting stenosis or large vessel occlusion of the cervical or intracranial arteries. 2. Mild atherosclerosis in the bilateral intracranial internal carotid arteries, right intracranial vertebral artery, and left carotid bulb without significant stenosis. Hospitalist Physical Gen: WDWN, NAD, Awake, Alert, Orientated HEENT: NCAT, EOMI, PERRL, OP Clear Neck: supple, no adenopathy, no thyromegaly, no JVD CVS/Heart: RRR, normal S1S2, pulses present bilaterally Chest/Lungs: CTA B, Symmetrical chest expansion, good air entry bilaterally GI/Abdomen: soft, NTND, good bowel sounds, no guarding or rebound /Bladder: no suprapubic tenderness, no CVA or paraspinal tenderness Extermity/Skin: no c/c/e, no obvious rash MSK: FROM x 4 Neuro: CN 2-12 grossly intact, no new focal deficits Psych: calm Subjective Date of service: 07/09/19 Principal diagnosis: Stroke Interval history: Patient seen and examined. Medical records and medication list reviewed. No acute event overnight noted by the RN. Patient denies any chest pain or difficulty breathing. Patient is tolerating diet. Discussed plan of care at bedside with patient. Objective - Constitutional Vitals: Vital Signs - 12hr 07/09/19 12:19 Temperature 100.5 F H Pulse Rate 110 H Respiratory 22 Rate Blood Pressure 146/92 O2 Sat by Pulse 95 Oximetry - Labs CBC & Chem 7: 07/08/19 05:37 07/08/19 05:37
--- NOTE | 2019-07-10 09:00 | Discharge Summary ---
Providers - Providers Date of Admission: 06/30/19 19:10 Date of discharge: 07/10/19 Attending physician: MARLO PINK 06/30/19 Consult to Physician [CONS] Routine Comment: Consulting Provider: AKANKSHA JESUS Physician Instructions: Reason For Exam: TIA ??acute cva 06/30/19 19:37 Occupational Therapy Evaluate and Treat [CONS] Routine Comment: Reason For Exam: Neuro deficits Physical Therapy Evaluation and Treat [CONS] Routine Comment: Reason For Exam: Neuro deficits 07/02/19 14:11 Speech Therapy Evaluation and Treat [CONS] Routine Reason For Exam: stroke Primary care physician: DIRECTORY CARRIER Hospitalization Condition: Stable Hospital course: Patient is a 64-year-old -Turk[place] male with history of schizophrenia, CAD s/p stent, HTN who presents to the [facility] ED with complaints of right leg discomfort, weakness, dizziness, unsteady gait for the past 2 days. Stroke workup revealed acute CVA in the renal brainstem pontine. Patient was evaluated by PTOT and recommended acute rehabilitation. Patient discharged to date due to insurance approval for rehabilitation placement. Patient was then discharged home in stable condition with home health PTOT. * CT head without contrast: IMPRESSION: 1. No definite acute findings. 2. Chronic encephalomalacia in the right anterior temporal lobe and right inf erior frontal lobe, likely secondary to remote prior trauma. 3. Moderate deep cerebral white matter hypoattenuation with pattern consistent with chronic microvascular radiographic change. * TTE conclusions: Global LVSF is at the lower limit of normal, estimated EF 50- 55%, mild concentric LVH, mild MVP, mild MR, trace TR, no PFO * Brain MRI without contrast IMPRESSION: 1. Small focus of ischemia seen in the melo leftward of midline, as described above. * Brain MRA without contrast IMPRESSION: 1. Mildly limited exam secondary to motion artifact. No appreciable flow limiting stenosis or large vessel occlusion. 2. Probable mild stenosis in the bilateral supraclinoid internal carotid arteries. * pCXR IMPRESSION: 1. No acute findings. * CTA head and neck IMPRESSION: 1. No flow-limiting stenosis or large vessel occlusion of the cervical or intracranial arteries. 2. Mild atherosclerosis in the bilateral intracranial internal carotid arteries, right intracranial vertebral artery, and left carotid bulb without significant stenosis. Discharge diagnosis: /Acute CVA ruled in, brain stem pontine ischemic stroke -treat with ASA, and Statin -Neurology consulted, input noted -PT/OT consulted, input noted /New onset Dyslipidemia -treat with statin /Hypertension -Continue to monitor BP -stop bp due to borderline hypotension /History of schizophrenia -receives monthly invega shots -Supportive care /DVT PPX -Lovenox -SCD's Disposition: home with Hospitalist Physical Gen: WDWN, NAD, Awake, Alert, Orientated HEENT: NCAT, EOMI, PERRL, OP Clear Neck: supple, no adenopathy, no thyromegaly, no JVD CVS/Heart: RRR, normal S1S2, pulses present bilaterally Chest/Lungs: CTA B, Symmetrical chest expansion, good air entry bilaterally GI/Abdomen: soft, NTND, good bowel sounds, no guarding or rebound /Bladder: no suprapubic tenderness, no CVA or paraspinal tenderness Extermity/Skin: no c/c/e, no obvious rash MSK: FROM x 4 Neuro: CN 2-12 grossly intact, no new focal deficits Psych: calm Disposition: [id number]/[place]-[id number] HOME [facility] Time spent for discharge: 34 minutes Core Measure Documentation - Palliative Care Palliative Care/ Comfort Measures: Not Applicable - Core Measures Any of the following diagnoses?: stroke - Stroke Discharge Requirements Statin for LDL = or >70 mg/dl on DC: Yes Anticoag for atrial fib/atrial flutter: Not Applicable Antithrombotic for ischemic stroke: Yes Exam - Constitutional Vitals: Temp Pulse Resp BP Pulse Ox 100.0 F H 84 20 144/77 95 07/10/19 05:45 07/10/19 05:45 07/10/19 05:45 07/10/19 05:45 07/10/19 05:45 Plan Activity: fall precautions Weight Bearing Status: Non-Weight Bearing Diet: per dietitian instruction Follow up with: PRIMARY MD EVER [Primary Care Provider] - 3-5 Days BARBI MONTANEZ MD [Staff Physician] - 7 Days Prescriptions: AtorvaSTATin [Lipitor] 40 mg PO QHS #30 tablet Aspirin EC [Halfprin EC] 81 mg PO QDAY #30 tablet.
[2019-07-10] MEDS: HABITROL TD SCH (09:54)
[2019-07-10] MEDS: LOVENOX SUB-Q SCH (09:54)
[2019-07-10] MEDS: COLACE PO SCH (09:54)
[2019-07-10] MEDS: ASPIRIN PO SCH (09:55)
--- NOTE | 2019-07-10 10:18 | XRay Report ---
CHEST 1 VIEW INDICATION: fever. COMPARISON: 06/30/19 FINDINGS: Support devices: None. Heart: Within normal limits. Lungs/Pleura: No acute air space or interstitial disease. Additional findings: None. IMPRESSION: No acute findings. Signer Name: Wes Naylor Jr, MD Signed: 07/10/2019 10:14 AM Workstation Name: [id number]
[2019-07-10 17:53] VITALS: BP 139/88
== END 2019-07-10 18:41 | disposition home health service (06) | DRG 65 ==
LOC: ED 13:55 → 4A 19:10 → 3A 07-04 17:33
PROVIDERS: ADMIT Internal Medicine; ATTEND Internal Medicine
DX: I63.9 Cerebral infarction, unspecified (principal); G81.91 Hemiplegia, unspecified affecting right dominant side; I10 Essential (primary) hypertension; F20.9 Schizophrenia, unspecified; I25.10 Atherosclerotic heart disease of native coronary artery without angina pectoris; G93.89 Other specified disorders of brain; E78.5 Hyperlipidemia, unspecified; R47.81 Slurred speech; F17.200 Nicotine dependence, unspecified, uncomplicated; R26.81 Unsteadiness on feet; Z79.899 Other long term (current) drug therapy; Z95.5 Presence of coronary angioplasty implant and graft
CPT/HCPCS: 36415; 70450; 70496; 70498; 70544; 70551; 71045; 80048; 80053; 80061; 81001; 82550; 82962; 83735; 84484; 85025; 85027; 85610; 87040; 93005; 93010; 93306; 96360; 99406; G0378; A9270-GY; J1650; J7030; Q9967